=== PATIENT | female | born 1975 | race African-American/Black ===

== ENCOUNTER 2019-05-08 19:52 | Emergency (ER) | payer SELFPAY ==
[2019-05-08 21:04] LABS: Absolute Lymphocytes (CBC) 2.8 K/uL (0.7-4.9); Basophils % 0.1 % (0-1.3); Eosinophils % 1.4 % (0-4.4); Hematocrit 39.9 % (36.0-45.0); Lymphocytes % 39.8 % (15.3-44.8); MPV 8.7 fL (7.6-11.3); Monocytes % 6.2 % (3.3-12.3)
[2019-05-08 21:05] LABS: Protime INR 1.02
[2019-05-08] MEDS ORDERED: ONDANSETRON 4 MG (ODT) TAB ONE (21:12)
[2019-05-08] MEDS ORDERED: MECLIZINE HCL 12.5 MG TAB ONE (21:12)
--- NOTE | 2019-05-08 21:15 | RAD REPORT ---
EXAM DESCRIPTION: RAD - Chest Single View - 05/08/2019 9:08 pm CLINICAL HISTORY: CHEST PAIN Chest pain. COMPARISON: Chest Single View dated 09/23/2016; CHEST SINGLE VIEW dated 12/30/2013; CHEST SINGLE VIEW dated 12/08/2009; CHEST SINGLE VIEW dated 11/29/2008 FINDINGS: Portable technique limits examination quality. The lungs are grossly clear. The heart is mildly enlarged in size. No displaced fractures. IMPRESSION: Mild cardiomegaly.
[2019-05-08 21:17] LABS: ALT/SGPT 18 U/L (12-78); AST/SGOT 14 U/L (15-37); Albumin 3.3 g/dL (3.4-5.0); Alkaline Phosphatase 73 U/L (45-117); BUN Blood Urea Nitrogen 14 mg/dL (7-18); Bicarbonate 29 mmol/L (21-32); Bilirubin Direct 0.1 mg/dL (0-0.2); Bilirubin Total 0.4 mg/dL (0.2-1.0); Glucose Level 85 mg/dL (74-106); Magnesium 2.3 mg/dL (1.8-2.4); NT PRO-BNP 94 pg/mL (<125); Potassium 3.8 mmol/L (3.5-5.1); Protein, Total 6.9 g/dL (6.4-8.2); Sodium Level 140 mmol/L (136-145); Troponin (Emerg Dept Use Only) < 0.02 ng/mL (0.0-0.045)
--- NOTE | 2019-05-08 22:31 | ER ---
Nurse's Notes [facility] Name: Theresa Mcgill Age: 44 yrs Sex: Female : 1975 Arrival Date: 05/08/2019 Time: 19:53 Bed 26 Private MD: Diagnosis: Dizziness. Acute labyrinthitis Presentation: 05/08 19:57 Presenting complaint: Patient states: Dizziness with nausea that is worse with movement aj since yesterday. Transition of care: patient was not received from another setting of care. Onset of symptoms was May 07, 2019. Risk Assessment: Do you want to hurt yourself or someone else? Patient reports no desire to harm self or others. Initial Sepsis Screen: Does the patient meet any 2 criteria? No. Patient's initial sepsis screen is negative. Does the patient have a suspected source of infection? No. Patient's initial sepsis screen is negative. Care prior to arrival: None. 19:57 Method Of Arrival: Ambulatory 19:57 Acuity: PAULINE 3 aj Triage Assessment: 19:58 General: Appears in no apparent distress. comfortable, Behavior is calm, cooperative, aj appropriate for age. Pain: Denies pain. Neuro: Level of Consciousness is awake, alert, obeys commands, Oriented to person, place, time, situation, Appropriate for age. Neuro: Reports dizziness. Respiratory: Airway is patent Respiratory effort is even, unlabored, Respiratory pattern is regular, symmetrical. GI: Reports nausea, vomiting. Derm: Skin is intact, is healthy with good turgor, Skin is pink, warm \T\ dry. normal. 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 - Social history:: Smoking status: Patient/guardian denies using tobacco. - Ebola Screening: : Patient negative for fever greater than or equal to 101.5 degrees Fahrenheit, and additional compatible Ebola Virus Disease symptoms Patient denies exposure to infectious person Patient denies travel to an Ebola-affected area in the 21 days before illness onset No symptoms or risks identified at this time. Screenin:09 Abuse screen: Denies threats or abuse. Denies injuries from another. Nutritional ca1 screening: No deficits noted. Tuberculosis screening: No symptoms or risk factors identified. Fall Risk None identified. Assessment: 20:00 General: Appears in no apparent distress. comfortable, Behavior is calm, cooperative, ca1 appropriate for age. Pain: Denies pain. Neuro: Level of Consciousness is awake, alert, obeys commands, Oriented to person, place, time, situation, Reports dizziness, since yesterday. Cardiovascular: Reports lightheadedness, Heart tones S1 S2 present Capillary refill < 3 seconds Patient's skin is warm and dry. Pulses are all present. Rhythm is sinus bradycardia. Respiratory: Airway is patent Respiratory effort is even, unlabored, Respiratory pattern is regular, symmetrical, Breath sounds are clear bilaterally. GI: Abdomen is round non-distended, obese, Bowel sounds present X 4 quads. Abd is soft and non tender X 4 quads. GI: Reports nausea. : No deficits noted. No signs and/or symptoms were reported regarding the genitourinary system. EENT: No deficits noted. No signs and/or symptoms were reported regarding the EENT system. Derm: Skin is intact, is healthy with good turgor, Skin is pink, warm \T\ dry. Musculoskeletal: Circulation, motion, and sensation intact. Capillary refill < 3 seconds, Range of motion: intact in all extremities. 21:15 Reassessment: Patient appears in no apparent distress at this time. Patient and/or ca1 family updated on plan of care and expected duration. Pain level reassessed. Patient is alert, oriented x 3, equal unlabored respirations, skin warm/dry/pink. 22:20 Reassessment: Patient appears in no apparent distress at this time. Patient and/or ca1 family updated on plan of care and expected duration. Pain level reassessed. Patient is alert, oriented x 3, equal unlabored respirations, skin warm/dry/pink. 22:39 Reassessment: Patient appears in no apparent distress at this time. Patient is alert, ca1 oriented x 3, equal unlabored respirations, skin warm/dry/pink. Vital Signs: 19:58 BP 140 / 61; Pulse 61; Resp 16; Temp 97.9; Pulse Ox 97% on R/A; Weight 126.1 kg; Height aj 5 ft. 6 in. (167.64 cm); 21:15 BP 122 / 75; Pulse 62; Resp 17 S; Temp 98.1(TE); Pulse Ox 100% on R/A; ca1 22:22 BP 121 / 71; Pulse 54; Resp 19 S; Temp 98(TE); Pulse Ox 98% on R/A; ca1 19:58 Body Mass Index 44.87 (126.10 kg, 167.64 cm) ED Course: 19:53 Patient arrived in ED. ag3 19:58 Triage completed. aj 19:58 Arm band placed on right wrist. Patient placed in an exam room. aj 20:08 Deneen Gay, JOSE is Primary Nurse. ca1 20:09 Patient has correct armband on for positive identification. Placed in gown. Bed in low ca1 position. Call light in reach. Side rails up X 1. front desk monitor on. Pulse ox on. NIBP on. Warm blanket given. 20:38 Don Wallis PA is PHCP. [facility] 20:38 Bhavesh Castellano MD is Attending Physician. [facility] 20:48 No provider procedures requiring assistance completed. Inserted saline lock: 20 gauge ca1 in right antecubital area, using aseptic technique. Blood collected. 21:10 XRAY Chest (1 view) In Process Unspecified. EDMS 21:29 CT Head Brain wo Cont In Process Unspecified. EDMS 22:40 IV discontinued, intact, bleeding controlled, No redness/swelling at site. Pressure ca1 dressing applied. Administered Medications: 20:58 Drug: Meclizine 50 mg Route: PO; ca1 22:18 Follow up: Response: No adverse reaction; Nausea is decreased ca1 20:58 Drug: Zofran 4 mg Route: PO; ca1 22:20 Follow up: Response: No adverse reaction; Marked relief of symptoms ca1 Outcome: 22:29 Discharge ordered by . pkcody 22:40 Discharged to home ambulatory, with family. ca1 22:40 Condition: stable 22:40 Discharge instructions given to patient, Instructed on discharge instructions, follow up and referral plans. medication usage, Demonstrated understanding of instructions, follow-up care, medications, Prescriptions given X 2. 22:40 Patient left the ED. ca1 Signatures: Dispatcher [employer] EDMS Florecita Jones RN RN aj Lam, Pin, MD MD pkl Mickail, Joel, PA PA jmm Gomez, Gayle ag3 Acjazzmine, Deneen, RN RN ca1
--- NOTE | 2019-05-08 22:31 | EDPHYS ---
Physician Documentation [facility] Name: Theresa Mcgill Age: 44 yrs Sex: Female : 1975 Arrival Date: 05/08/2019 Time: 19:53 Bed 26 Private MD: ED Physician Bhavesh Castellano HPI: 05/08 20:49 This 44 yrs old Black Female presents to ER via Ambulatory with complaints of Nausea, jmm Dizziness. 20:49 The patient presents with dizziness. Onset: The symptoms/episode began/occurred jmm acutely, 1 day(s) ago. Modifying factors: The symptoms are alleviated by holding head still, the symptoms are aggravated by movement of head, standing up, changing position. Associated signs and symptoms: Pertinent positives: nausea. This is a 44 year old female with a history of asthma that presents to the ED with complaints of dizziness/pre syncope beginning yesterday while walking. Patient states symptoms have been ongoing with nausea. Symptoms are worsened with movement. Denies weakness. 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 - Social history:: Smoking status: Patient/guardian denies using tobacco. - Ebola Screening: : Patient negative for fever greater than or equal to 101.5 degrees Fahrenheit, and additional compatible Ebola Virus Disease symptoms Patient denies exposure to infectious person Patient denies travel to an Ebola-affected area in the 21 days before illness onset No symptoms or risks identified at this time. ROS: 20:49 Constitutional: Negative for fever, chills, and weight loss, Cardiovascular: Negative jmm for chest pain, palpitations, and edema, Respiratory: Negative for shortness of breath, cough, wheezing, and pleuritic chest pain. 20:49 Neuro: Positive for dizziness. 20:49 All other systems are negative. Exam: 20:49 Constitutional: This is a well developed, well nourished patient who is awake, alert, jmm and in no acute distress. Head/Face: atraumatic. Eyes: EOMI, no conjunctival erythema appreciated ENT: Moist Mucus Membranes Neck: Trachea midline, Supple Chest/axilla: Normal chest wall appearance and motion. Cardiovascular: Regular rate and rhythm. No edema appreciated 20:49 Abdomen/GI: Non distended, soft Back: Normal ROM Skin: General appearance color normal MS/ Extremity: Moves all extremities, no obvious deformities appreciated, no edema noted to the lower extremities 20:49 Eyes: Nystagmus: fatiguable . 20:49 Neuro: Orientation: is normal, Mentation: is normal, Memory: is normal, Cerebellar function: normal finger to nose testing. 20:49 Psych: Behavior/mood is pleasant, cooperative. 21:30 ECG was reviewed by the Attending Physician. [facility] Vital Signs: 19:58 BP 140 / 61; Pulse 61; Resp 16; Temp 97.9; Pulse Ox 97% on R/A; Weight 126.1 kg; Height aj 5 ft. 6 in. (167.64 cm); 21:15 BP 122 / 75; Pulse 62; Resp 17 S; Temp 98.1(TE); Pulse Ox 100% on R/A; ca1 22:22 BP 121 / 71; Pulse 54; Resp 19 S; Temp 98(TE); Pulse Ox 98% on R/A; ca1 19:58 Body Mass Index 44.87 (126.10 kg, 167.64 cm) aj MDM: 20:49 Patient medically screened. [facility] 21:30 Data reviewed: vital signs, nurses notes. [facility] 21:54 Transition of care: After a detail discussion of the patient's case, care is [facility] transferred to Bhavesh Castellano MD. 22:25 Data reviewed: vital signs, nurses notes, lab test result(s), EKG, radiologic studies, pkl CT scan, plain films. ED course: Discussed lab. and imaging's results with patient. Patient said she is better. Advised to follow with her PCP in 2 to 3 days. Patient understood instructions. 05/08 20:40 Order name: Basic Metabolic Panel ca1 05/08 20:40 Order name: CBC with Diff ca1 05/08 20:40 Order name: LFT's ca1 05/08 20:40 Order name: Magnesium; Complete Time: 22:23 ca1 05/08 20:40 Order name: NT PRO-BNP; Complete Time: 22:23 ca1 05/08 20:40 Order name: PT-INR; Complete Time: 22:23 ca1 05/08 20:40 Order name: Troponin (emerg Dept Use Only); Complete Time: 22:23 ca1 05/08 20:40 Order name: XRAY Chest (1 view); Complete Time: 22: ca1 05/08 20:41 Order name: Basic Metabolic Panel; Complete Time: 22:23 EDMS 05/08 20:41 Order name: CBC with Automated Diff; Complete Time: 22:23 EDMS 05/08 20:41 Order name: Liver (Hepatic) Function; Complete Time: 22: EDMS 05/08 20:52 Order name: CT Head Brain wo Cont jmm 05/08 20:40 Order name: EKG; Complete Time: 20:42 ca1 05/08 20:40 Order name: Cardiac monitoring; Complete Time: 20:48 ca1 05/08 20:40 Order name: EKG - Nurse/Tech; Complete Time: 20:48 ca1 05/08 20:40 Order name: IV Saline Lock; Complete Time: 20:48 ca1 05/08 20:40 Order name: Labs collected and sent; Complete Time: 20:48 ca1 05/08 20:40 Order name: O2 Per Protocol; Complete Time: 20:48 ca1 05/08 20:40 Order name: O2 Sat Monitoring; Complete Time: 20:48 ca1 EC:30 Rate is 57 beats/min. Rhythm is regular. QRS [place] is Normal. CA interval is normal. QRS jmm interval is normal. QT interval is normal. No Q waves. T waves are Normal. No ST changes noted. Administered Medications: 20:58 Drug: Meclizine 50 mg Route: PO; ca1 22:18 Follow up: Response: No adverse reaction; Nausea is decreased ca1 20:58 Drug: Zofran 4 mg Route: PO; ca1 22:20 Follow up: Response: No adverse reaction; Marked relief of symptoms ca1 Disposition: 22:25 Co-signature as Attending Physician, Bhavesh Castellano MD. pkl Disposition: 05/08/19 22:29 Discharged to Home. Impression: Dizziness. Acute labyrinthitis. - Condition is Stable. - Prescriptions for Zofran 4 mg Oral Tablet - take 1 tablet by ORAL route every 12 hours As needed; 6 tablet. Antivert 25 mg Oral Tablet - take 1 tablet by ORAL route every 8 hours As needed; 20 tablet. - Medication Reconciliation Form, Thank You Letter, Antibiotic Education, Prescription Opioid Use form. - Follow up: Private Physician; When: 2 - 3 days; Reason: Re-evaluation by your physician. - Problem is new. - Symptoms have improved. Signatures: Dispatcher [employer] Florecita Danielson, RN RN Bhavesh Purdy MD MD pkl Don Wallis PA PA jmm Acob, Cheryl, RN RN ca1 Corrections: (The following items were deleted from the chart) 22:40 22:29 05/08/2019 22:29 Discharged to Home. Impression: Dizziness. Acute labyrinthitis. ca1 Condition is Stable. Forms are Medication Reconciliation Form, Thank You Letter, Antibiotic Education, Prescription Opioid Use. Follow up: Private Physician; When: 2 - 3 days; Reason: Re-evaluation by your physician. Problem is new. Symptoms have improved. pkl
--- NOTE | 2019-05-09 07:21 | EKG ---
Test Date: 2019-05-08 Test Time: 20:19:22 Naval Engineer: DARÍO MEASUREMENT RESULTS: Intervals: Rate: 57 CT: 178 QRSD: 80 QT: 434 QTc: 422 [place]: P: 51 CT: 178 QRS: 38 T: 45 INTERPRETIVE STATEMENTS: Sinus bradycardia Otherwise normal ECG Compared to ECG 11/29/2008 20:02:38 Sinus tachycardia no longer present T-wave abnormality no longer present Electronically Signed On 05-09-19 07:20:35 CDT by Marlon Rosales
--- NOTE | 2019-05-09 12:51 | RAD REPORT ---
EXAM DESCRIPTION: CT HEAD WITHOUT IV CONTRAST CLINICAL HISTORY: DIZZINESS. COMPARISON: None. TECHNIQUE: CT scan of the brain without IV contrast. This exam was performed according to our depa rtmental dose-optimization program, which includes automated exposure control, adjustment of the mA a nd/or kV according to patient size and/or use of iterative reconstruction technique. FINDINGS: The ventricles, cisterns, and sulci are age-appropriate. No evidence of acute infarction, intracranial hemorrhage, extra-axial fluid collection, or midline shift. No air-fluid levels are seen in the paranasal sinuses to suggest acute sinusitis. No depressed skull fracture. IMPRESSION: No acute intracranial findings. Electronically signed by: Demetrio Avalos MD 05/08/2019 9:36 PM CDT Due to temporary technical issues with the PACS/Fluency reporting system, reports are being signed by the in house radiologist as a courtesy to ensure prompt reporting. The interpreting radiologist is f ully responsible for the content of the report.
== END 2019-05-08 22:40 | disposition home or self-care (01) ==
LOC: ER 19:52
DX: H83.09 Labyrinthitis, unspecified ear (principal); R42 Dizziness and giddiness; J45.909 Unspecified asthma, uncomplicated
CPT/HCPCS: 36415; 70450; 71045; 80048; 80076; 83735; 83880; 84484; 85025; 85610; 93005; 99284

== ENCOUNTER 2020-01-30 03:47 | Emergency (ER) | payer OTHER, SELFPAY ==
--- OUTSIDE RECORDS SUMMARY | 2020-01-30 03:50 | XMS REPORT ---
:1975 Author Organization [employer] Care Team Providers Name Role Phone Beth Starkey Provider Role Unavailable Allergies No Known Allergies Problems Problem Type Condition Code Onset Dates Condition Statu s Problem Hyperlipidemia, unspecified E78.5 Active hyperlipidemia type Problem Morbid (severe) obesity due to E66.01 Active excess calories Problem Body mass index (BMI) 40.0-44.9, Z68.41 Active adult Problem Asthma, unspecified asthma J45.909 A ctive severity, unspecified whether complicated, unspecified whether persistent Problem Prediabetes R73.03 Active Problem Enlarged heart I51.7 Active Problem Diabetes E11.9 Active Problem Palpitations R00.2 Active Problem Essential hypertension I10 Activ e Problem Seasonal allergies J30.2 Active Problem Peripheral edema R60.9 Active Problem Anxiety F41.9 Active Problem Morbid obesity E66.01 Active Medications No Known Medications Results No Known Results Summary Purpose [employer]Clinical[employer] Submission
--- OUTSIDE RECORDS SUMMARY | 2020-01-30 03:50 | XMS REPORT ---
[...] Active Problem Morbid obesity E66.01 Active Medications Medication Code Code Instructions Start End Status Dosage System Date Date Rosuvastatin [facility] [id number] 20 MG Orally January Active 1 tablet Calcium Once a day 2019 Results No Known Results Summary Purpose [employer] Submission
--- OUTSIDE RECORDS SUMMARY | 2020-01-30 03:50 | XMS REPORT ---
:1975 Author [facility] Care Team Providers Name Role Phone Beth Starkey Provider Role Unavailable Allergies, Adverse Reactions, Alerts Substance Reaction Event Type N.K.D.A. Info Not Available Non Drug Allergy Problems Problem Type Condition Code Onset Dates Condition Statu s Problem Hyperlipidemia, unspecified E78.5 Active hyperlipidemia type Problem Morbid (severe) obesity due to E66.01 Active excess calories Problem Body mass index (BMI) 40.0-44.9, Z68.41 Active adult Problem Diabetes E11.9 Active Assessment Asthma, unspecified asthma J45.909 A ctive severity, unspecified whether complicated, unspecified whether persistent Problem Palpitations R00.2 Active Assessment Morbid obesity E66.01 Active Assessment Body mass index (BMI) 40.0-44.9, Z68.41 Active adult Problem Essential hypertension I10 Activ e Problem Seasonal allergies J30.2 Active Problem Peripheral edema R60.9 Active Problem Anxiety F41.9 Active Problem Morbid obesity E66.01 Active Assessment Peripheral edema R60.9 Active Assessment Enlarged heart I51.7 Active Assessment Hyperlipidemia, unspecified E78.5 Active hyperlipidemia type Assessment Prediabetes R73.03 Active Problem Asthma, unspecified asthma J45.909 A ctive severity, unspecified whether complicated, unspecified whether persistent Assessment Palpitations R00.2 Active Problem Prediabetes R73.03 Active Assessment Anxiety F41.9 Active Assessment Essential hypertension I10 Activ e Problem Enlarged heart I51.7 Active Medications Medication Code Code Instructions Start End Status Dosage System Date Date Albuterol ND 02713075337 (2.5 MG/3ML) Active 3 ml as Sulfate 0.083% needed Inhalation every 4-6 hrs Ventolin HFA ND 63530669443 108 (90 Base) Active 2 puffs as MCG/ACT needed Inhalation every 4-6 hrs. Bystolic NDC 89654064778 5 MG Orally Once Active 1 tablet a day Albuterol NDC 0 Active not defined Symbicort ND 57949427689 80-4.5 MCG/ACT Oct 11, Active 2 p uffs Inhalation Twice 2020 a day Results No Known Results Summary Purpose eClinicalWorks Submission
--- OUTSIDE RECORDS SUMMARY | 2020-01-30 03:50 | XMS REPORT ---
:1975 Author Organization [facility] t Address [facility] [place] [address] Care Team Providers Name Role Phone Unavailable Unavailable Unavailable Problems This patient has no known problems. Allergies, Adverse Reactions, Alerts This patient has no known allergies or adverse reactions. Medications This patient has no known medications.
--- NOTE | 2020-01-30 04:14 | ER ---
Nurse's Notes [facility] Name: Theresa Mcgill Age: 44 yrs Sex: Female : 1975 Arrival Date: 01/30/2020 Time: 03:52 Bed 5 Private MD: Beth Starkey Diagnosis: Dental caries Presentation: 01/29 04:00 Chief complaint: Patient states: I am having toothache started yesterday now it gets rr5 worst. 04:00 Coronavirus screen: Proceed with normal triage. Ebola Screen: No symptoms or risks rr5 identified at this time. Initial Sepsis Screen: Does the patient meet any 2 criteria? No. Patient's initial sepsis screen is negative. Does the patient have a suspected source of infection? No. Patient's initial sepsis screen is negative. Risk Assessment: Do you want to hurt yourself or someone else? Patient reports no desire to harm self or others. Onset of symptoms was January 29, 2020. 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 - Social history:: Smoking status: unknown Patient/guardian denies using alcohol, street drugs, tobacco products. - Family history:: not pertinent. - Hospitalizations: : No recent hospitalization is reported. Screenin:06 Abuse screen: Denies threats or abuse. Denies injuries from another. Nutritional rr5 screening: No deficits noted. Tuberculosis screening: No symptoms or risk factors identified. Fall Risk None identified. Total Li Fall Scale indicates No Risk (0-24 pts). Assessment: 04:00 General: Appears in no apparent distress. uncomfortable, Behavior is calm, cooperative, rr5 appropriate for age. Pain: Complains of pain in upper left third molar Pain radiates to face Pain currently is 10 out of 10 on a pain scale. Quality of pain is described as aching, Pain began 1 day ago. Is intermittent. Neuro: Level of Consciousness is awake, alert, obeys commands, Oriented to person, place, time, situation, Appropriate for age. Cardiovascular: Capillary refill < 3 seconds Patient's skin is warm and dry. Respiratory: Airway is patent Respiratory effort is even, unlabored, Respiratory pattern is regular, symmetrical. GI: No signs and/or symptoms were reported involving the gastrointestinal system. : No signs and/or symptoms were reported regarding the genitourinary system. EENT: Dental caries noted in upper left third molar (#16) Reports pain in upper left third molar. Derm: Skin is intact, is healthy with good turgor, Skin temperature is warm. Musculoskeletal: Circulation, motion, and sensation intact. Capillary refill < 3 seconds. 04:43 Reassessment: Patient appears in no apparent distress at this time. Patient is alert, rr5 oriented x 3, equal unlabored respirations, skin warm/dry/pink. discharge instruction given and explained without complaints made. family member arrived for her transportation going home. Patient states symptoms have improved. Vital Signs: 04:00 BP 175 / 107; Pulse 66; Resp 20; Temp 98.4; Pulse Ox 99% ; Weight 119.29 kg; Height 5 rr5 ft. 6 in. (167.64 cm); Pain 10/10; 04:44 BP 168 / 110; Pulse 62; Resp 19; Temp 98; Pulse Ox 98% ; rr5 04:00 Body Mass Index 42.45 (119.29 kg, 167.64 cm) rr5 ED Course: 03:52 Patient arrived in ED. es 03:52 Beth Starkey MD is Private Physician. es 04:00 Arm band placed on right wrist. rr5 04:01 Miky Solorzano RN is Primary Nurse. rr5 04:03 Triage completed. rr5 04:04 Adi Scott MD is Attending Physician. rn 04:08 Patient has correct armband on for positive identification. Bed in low position. Call rr5 light in reach. 04:45 No provider procedures requiring assistance completed. Patient did not have IV access rr5 during this emergency room visit. Administered Medications: 04:20 Drug: Clindamycin 300 mg Route: PO; rr5 04:46 Follow up: Response: No adverse reaction rr5 04:20 Drug: [place] 5 mg-325 mg 1 tabs {Note: rass 0.} Route: PO; rr5 04:45 Follow up: Response: No adverse reaction; Pain is decreased; RASS: Alert and Calm (0) rr5 04:23 Drug: TORadol - Ketorolac 15 mg Route: IM; Site: right deltoid; rr5 04:45 Follow up: Response: No adverse reaction; Pain is decreased rr5 Outcome: 04:13 Discharge ordered by . rn 04:45 Discharged to home ambulatory, with family. rr5 04:45 Condition: stable 04:45 Discharge instructions given to patient, Instructed on discharge instructions, follow up and referral plans. medication usage, Demonstrated understanding of instructions, follow-up care, medications, Prescriptions given X 1. 04:46 Patient left the ED. rr5 Signatures: Julieta Guzmán Roman, MD MD rn Roque, Raymond, RN RN rr5
--- NOTE | 2020-01-30 04:14 | EDPHYS ---
Physician Documentation [facility] Name: Theresa Mcgill Age: 44 yrs Sex: Female : 1975 Arrival Date: 01/30/2020 Time: 03:52 Bed 5 Private MD: Beth Starkey ED Physician Adi Scott HPI: 01/29 04:09 This 44 yrs old Black Female presents to ER via Ambulatory with complaints of Toothache.rn 04:09 The patient presents with pain. The problem is located in the left upper last molar. rn Onset: The symptoms/episode began/occurred yesterday. Duration: The symptoms are intermittent. Modifying factors: The symptoms are alleviated by nothing, the symptoms are aggravated by chewing, talking. Severity of symptoms: At their worst the symptoms were moderate, in the emergency department the symptoms are unchanged. The patient has experienced similar episodes in the past. Reports toothache since yesterday, no trauma, no swelling, reports pain shooting to head. No fever. Has had dental pain before but feels worse this time.. 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 - Social history:: Smoking status: unknown Patient/guardian denies using alcohol, street drugs, tobacco products. - Family history:: not pertinent. - Hospitalizations: : No recent hospitalization is reported. ROS: 04:10 Constitutional: Negative for fever, chills, and weight loss, ENT: + dental pain Neck: rn Negative for injury, pain, and swelling, Neuro: Negative for weakness, numbness, tingling, and seizure. Exam: 04:10 Constitutional: This is a well developed, well nourished patient who is awake, alert, rn and in no acute distress. Head/Face: Normocephalic, atraumatic. ENT: Poor dentition, most notably left upper last molar, with deep cavitation, no abscess noted, no fluctuance in buccal space. Neck: Trachea midline, no thyromegaly or masses palpated, and no cervical lymphadenopathy. Supple, full range of motion without nuchal rigidity, or vertebral point tenderness. No Meningismus. Vital Signs: 04:00 BP 175 / 107; Pulse 66; Resp 20; Temp 98.4; Pulse Ox 99% ; Weight 119.29 kg; Height 5 rr5 ft. 6 in. (167.64 cm); Pain 10/10; 04:44 BP 168 / 110; Pulse 62; Resp 19; Temp 98; Pulse Ox 98% ; rr5 04:00 Body Mass Index 42.45 (119.29 kg, 167.64 cm) rr5 MDM: 04:04 Patient medically screened. rn 04:10 Differential diagnosis: dental caries. Differential diagnosis: dental abscess. Data rn reviewed: vital signs, nurses notes, and as a result, I will discharge patient. Counseling: I had a detailed discussion with the patient and/or guardian regarding: the historical points, exam findings, and any diagnostic results supporting the discharge/admit diagnosis, the need for outpatient follow up, to return to the emergency department if symptoms worsen or persist or if there are any questions or concerns that arise at home. Response to treatment: the patient's symptoms have mildly improved after treatment. Special discussion: I discussed with the patient/guardian in detail that at this point there is no indication for admission to the hospital. It is understood, however, that if the symptoms persist or worsen the patient needs to return immediately for re-evaluation. Administered Medications: 04:20 Drug: Clindamycin 300 mg Route: PO; rr5 04:46 Follow up: Response: No adverse reaction rr5 04:20 Drug: Terrell 5 mg-325 mg 1 tabs {Note: rass 0.} Route: PO; rr5 04:45 Follow up: Response: No adverse reaction; Pain is decreased; RASS: Alert and Calm (0) rr5 04:23 Drug: TORadol - Ketorolac 15 mg Route: IM; Site: right deltoid; rr5 04:45 Follow up: Response: No adverse reaction; Pain is decreased rr5 Disposition: 01/30/20 04:13 Discharged to Home. Impression: Dental caries. - Condition is Stable. - Discharge Instructions: Dental Pain. - Prescriptions for Clindamycin HCl 300 mg Oral Capsule - take 1 capsule by ORAL route every 6 hours for 10 days; 40 capsule. - Medication Reconciliation Form, Thank You Letter, Antibiotic Education, Prescription Opioid Use form. - Follow up: Private Physician; When: As needed; Reason: Recheck today's complaints, Re-evaluation by your physician. - Problem is chronic. - Symptoms have improved. Signatures: Adi Scott MD MD rn Roque, Raymond, RN RN rr5 Corrections: (The following items were deleted from the chart) 04:11 04:10 Constitutional: This is a well developed, well nourished patient who is awake, rn alert, and in no acute distress. Head/Face: Normocephalic, atraumatic. ENT: Poor dentition, most notably left upper last molar, with deep cavitation, no abscess noted, no fluctuance in buccal space. rn 04:46 04:13 01/30/2020 04:13 Discharged to Home. Impression: Dental caries. Condition is rr5 Stable. Forms are Medication Reconciliation Form, Thank You Letter, Antibiotic Education, Prescription Opioid Use. Follow up: Private Physician; When: As needed; Reason: Recheck today's complaints, Re-evaluation by your physician. Problem is chronic. Symptoms have improved. rn
[2020-01-30] MEDS ORDERED: HYDROCODONE/APAP 5/325 MG TAB ONE (04:22)
[2020-01-30] MEDS ORDERED: KETOROLAC 30 MG/ML INJ ONE (04:23)
[2020-01-30 05:00] VITALS: BP 168/110; TEMP 98; O2SAT 98
== END 2020-01-30 04:46 | disposition home or self-care (01) ==
LOC: ER 03:47
DX: K02.9 Dental caries, unspecified (principal); I10 Essential (primary) hypertension; E78.5 Hyperlipidemia, unspecified
CPT/HCPCS: 96372; 99283

== ENCOUNTER 2020-07-06 14:15 | Emergency (ER) | payer OTHER ==
--- OUTSIDE RECORDS SUMMARY | 2020-07-06 14:17 | XMS REPORT | Clinical Summary ---
:1975 Author Organization [facility] Address [address] [place] [address] Care Team Providers Name Role Phone Godwin Primary Care Provider Allergies No Known Allergies Medications Medication Sig Dispensed Refills Start Date End Date Status albuterol (PROVENTIL) Take 2.5 mg by 0 Active 2.5 mg/0.5 mL Nebu nebulization. nebulizer solution budesonide-formoterol Inhale 2 puffs by 0 Active (SYMBICORT) 80-4.5 mouth via inhaler mcg/actuation inhaler 2 (two) times daily. difluprednate 0.05 % Apply to eye(s) 4 0 Active Drop (four) times daily. prednisoLONE acetate 1 drop 4 (four) 0 Active (PRED FORTE) 1 % times daily. ophthalmic suspension polymyxin B Place 1 drop into 0 Active sulf-trimethoprim the left eye 10,000 unit- 1 mg/mL every 4 (four) Drop hours. fluticasone-salmeterol Inhale 1 puff by 0 Active (ADVAIR) 250-50 mouth via inhaler mcg/dose diskus inhaler every 12 (twelve) hours. Active Problems No known active problems Social History Tobacco Use Types Packs/Day Years Used Date Never Smoker Alcohol Use Drinks/Week oz/Week Comments No Sex Assigned at Date Recorded Not on file Job Start Date Occupation Industry Not on file Not on file Not on file Travel History Travel Start Travel End No recent travel history available. 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
--- OUTSIDE RECORDS SUMMARY | 2020-07-06 14:18 | XMS REPORT ---
:1975 [facility] Care Team Providers Name Role Phone Beth Starkey Provider Role Unavailable Allergies, Adverse Reactions, Alerts Substance Reaction Event Type N.K.D.A. Info Not Available Non Drug Allergy Problems Problem Type Condition Code Onset Dates Condition Statu s Assessment Anxiety F41.9 Active Assessment Morbid obesity E66.01 Active Assessment Body mass index (BMI) 40.0-44.9, Z68.41 Active adult Assessment Asthma, unspecified asthma J45.909 A ctive severity, unspecified whether complicated, unspecified whether persistent Assessment Hyperlipidemia, unspecified E78.5 Active hyperlipidemia type Assessment Prediabetes R73.03 Active Assessment Peripheral edema R60.9 Active Assessment Enlarged heart I51.7 Active Problem Seasonal allergies J30.2 Active Assessment Palpitations R00.2 Active Problem Morbid obesity E66.01 Active Assessment Screening mammogram, encounter for Z12.31 Active Problem Anxiety F41.9 Active Problem Diabetes E11.9 Active Problem Palpitations R00.2 Active Problem Hyperlipidemia E78.5 Active Problem Hypertension I10 Active Assessment Acute left-sided thoracic back pain M54.6 Active Assessment Urinary frequency R35.0 Active Problem Asthma J45.909 Active Assessment Urinary incontinence, unspecified R32 Active type Problem Asthma, unspecified asthma J45.909 A ctive severity, unspecified whether complicated, unspecified whether persistent Problem Prediabetes R73.03 Active Problem Acute left-sided thoracic back pain M54.6 Active Problem Urinary incontinence, unspecified R32 Active type Problem Essential hypertension I10 Activ e Problem Enlarged heart I51.7 Active Assessment Essential hypertension I10 Activ e Problem Morbid (severe) obesity due to E66.01 Active excess calories Problem Peripheral edema R60.9 Active Problem Hyperlipidemia, unspecified E78.5 Active hyperlipidemia type Problem Body mass index (BMI) 40.0-44.9, Z68.41 Active adult Medications Medication Code Code Instructions Start End Status Dosage System Date Date [facility] 40425870363 5 MG Orally Active 1 table t Once a day Meloxicam NDC 10096676131 15 MG Orally April 16April Active 1/2 to 1 Once daily 2019, tablet 2019 tablet as needed for pain; take with food or milk Rosuvastatin ND 93076690521 20 MG Orally January Active 1 tablet Calcium Once a day 2019 Albuterol [facility] 40152152918 (2.5 MG/3ML) Active 3 ml as Sulfate 0.083% needed Inhalation every 4-6 hrs Albuterol [facility] 04677052363 108 (90 Base) April 16, Active 2 p uffs as Sulfate HFA MCG/ACT 2019 needed Inhalation every 4-6 hrs Symbicort [facility] 05351295432 80-4.5 MCG/ACT Sept Active 2 p uffs Inhalation , Twice a day 2019 Ventolin HFA [facility] 23890053271 108 (90 Base) Inactive 2 puffs as MCG/ACT needed Inhalation every 4-6 hrs. ProAir HFA [facility] 31277404151 108 (90 Base) Active 1 p uff as MCG/ACT needed Inhalation every 4 hrs Albuterol [facility] 26493185225 Active not defined Results Name Result Date Reference Range Unit Abnormali ty Flag HEMOGLOBIN A1C ----A1C 5.4% 20200416 Urine Dip Stick ----pH 6.0 20200416 ----Ketone negative 20200416 ----SP. Gr 1.020 20200416 ----Leukocytes negative 20200416 ----Glucose negative 20200416 ----Protein negative 20200416 ----Nitrite negative 20200416 ----Blood negative 20200416 Summary Purpose eClinicalWorks Submission
--- OUTSIDE RECORDS SUMMARY | 2020-07-06 14:18 | XMS REPORT ---
:1975 Author Organization [employer] Care Team Providers Name Role Phone Beth Starkey Provider Role Unavailable Allergies No Known Allergies Problems Problem Type Condition Code Onset Dates Condition Statu s Problem Anxiety F41.9 Active Problem Diabetes E11.9 Active Problem Palpitations R00.2 Active Problem Hyperlipidemia E78.5 Active Problem Hypertension I10 Active Problem Asthma J45.909 Active Problem Asthma, unspecified asthma J45.909 A ctive severity, unspecified whether complicated, unspecified whether persistent Problem Prediabetes R73.03 Active Problem Acute left-sided thoracic back pain M54.6 Active Problem Urinary incontinence, unspecified R32 Active type Problem Essential hypertension I10 Activ e Problem Enlarged heart I51.7 Active Problem Morbid (severe) obesity due to E66.01 Active excess calories Problem Peripheral edema R60.9 Active Problem Hyperlipidemia, unspecified E78.5 Active hyperlipidemia type Problem Seasonal allergies J30.2 Active Problem Body mass index (BMI) 40.0-44.9, Z68.41 Active adult Problem Morbid obesity E66.01 Active Medications Medication Code Code Instructions Start End Date Status Dosage System Date Indomethacin NDC 96968548558 50 MG Orally May 15, Jun 14, Active 1 capsule Twice a day prn 2019 2019 with iris d or milk Results No Known Results Summary Purpose eClinicalWorks Submission
--- OUTSIDE RECORDS SUMMARY | 2020-07-06 14:18 | XMS REPORT | Summary of Care ---
:1975 Author Organization [facility] Address [address] [place] [address] Care Team Providers Name Role Phone KAIN Oliva Primary Care Provider Reason for Visit Reason Comments Exposure Encounter Details Date Type Department Care Team Description 06/04/2020 Laboratory Only [facility] Family Anita Reed PA [address] [place] [address] [place] [address] Suspected 2019 [facility] - [facility], [facility] Fam Pob I Coronavirus [address] [place] [address] Infection ([address] Dx) [place] [address] Allergies No Known Allergiesdocumented as of this encounter (statuses as of 06/04/2020) Medications Medication Sig Dispensed Refills Start Date End Date Status ibuprofen 600 mg Take 1 tablet by 30 tablet 0 10/22/2019 Active tabletIndications: mouth every 6 Viral URI with cough (six) hours as needed for Pain (scale 4-6). ondansetron (ZOFRAN Take 1 tablet by 10 tablet 0 10/22/2019 Active ODT) 4 mg mouth every 8 disintegrating (eight) hours as tabletIndications: needed for Viral URI with cough Nausea and Vomiting (N/V). benzonatate 200 mg Take 1 capsule 20 capsule 0 10/22/2019 Active capsuleIndications: by mouth 3 Viral URI with cough (three) times daily as needed for Cough for up to 20 doses. documented as of this encounter (statuses as of 06/04/2020) Active Problems Not on filedocumented as of this encounter (statuses as of 06/04/2020) Social History Tobacco Use Types Packs/Day Years Used Date Never Assessed Sex Assigned at Date Recorded Not on file documented as of this encounter Last Filed Vital Signs Not on filedocumented in this encounter Nursing Notes Amrita Cruz MA - 06/04/2020 4:40 PM CDMathew Mcgill is a 45 year old female here for COVID Screening with a Nasopharyngeal Swab All droplet and contact precautions taken with appropriate PPE worn while interacting with patient. ? Goggles ? N95 Mask ? Gloves ? Gown RR 18 Pulse Ox 98% Patient swabbed , both Nostrils. Patient educated on plan of care for visit, swabbing technique, risks and benefits of test and length of time to receive results. Verbal consent obtained to perform test. CDC Fact Sheet for Patients nCoV Diagnostic Panel dated 01/05/2020 and Factsheet What to Do if Sick with COVID 19 12/16/19 provided. Patient swabbed per appropriate nasopharyngeal technique, and patient tolerated well. Patient was discharged from the testing clinic in stable condition. Amrita Cruz MA 06/04/2020 4:46 PM documented in this encounter Plan of Treatment Name Type Priority Associated Diagnoses Order S anna COVID-19 (PCR MOLECULAR LAB Routine Suspected 2018 No jonas Ordered: 06/04/2020 TESTING) Coronavirus Infection Health Maintenance Due Date Last Done Comments Depression Screening 1988 DTaP,Tdap,and Td Vaccines (1 - 1995 Tdap) PAP SMEAR 1997 Breast Cancer Screening 2016 (MAMMOGRAM) INFLUENZA VACCINE (#1) 2020 PNEUMOCOCCAL 0-64 YEARS COMBINED Aged Out No longer eligible based on SERIES patient's age to complete this topic documented as of this encounter Results Not on filedocumented in this encounter Visit Diagnoses Diagnosis Suspected 2018 Novel Coronavirus Infecti on - Primary documented in this encounter Additional Health Concerns Infection Onset Date Last Indicated Resolved Time COVID-19 Rule Out 06/04/2020 06/04/2020 documented as of this encounter Insurance Payer Benefit Plan / Subscriber ID Effective Phone Address T e Group Dates [facility] [id number] 2020-Prese Me dicare Adv HEALTHCARE - [facility] documented as of this encounter
--- OUTSIDE RECORDS SUMMARY | 2020-07-06 14:18 | XMS REPORT | Continuity of Care Document ---
:1975 Author Organization [facility] t Address [address] [place] [address] Care Team Providers Name Role Phone Sharpless Primary Care Physician Doctor Unassigned, Name Attending Clinician Unavailable Lab, Fam Pob I Attending Clinician Unavailable Problems Condition Condition Condition Status Onset Resolution Last Treating Co mments Source Name Details Category Date Date Treatment Clinician Date Hyperlipid Hyperlipid Problem Active [facility], [facility], [facility] - unspecifie unspecifie Me moria d d l hyperlipid hyperlipid Ou tpati emia type emia type ent Clinics Morbid Morbid Problem Active [facility] (severe) (severe) [facility] - obesity obesity Memoria due to due to l excess excess Outpati calories calories ent Clinics Body mass Body mass Problem Active [facility] index index [facility] - (BMI) (BMI) Memoria 40.0-44.9, 40.0-44.9, l adult adult Outpati ent Clinics Diabetes Diabetes Problem [facility] Asthma, Asthma, Problem Active [facility] unspecifie unspecifie Cookie kes - d asthma d asthma Memori a severity, severity, l unspecifie unspecifie Ou tpati d whether d whether ent complicate complicate Cl inics d, d, unspecifie unspecifie d whether d whether persistent persistent Palpitatio Palpitatio Problem Active [facility] Essential Essential Diagnosis Active [facility] hypertensi hypertensi Cookie kes - on on Memoria l [facility] Seasonal Seasonal Problem Active [facility] allergies allergies [facility] - Memoria l [facility] Peripheral Peripheral Diagnosis Active [facility] edema edema [facility] - Memoria l [facility] Anxiety Anxiety Problem Active [facility] Enlarged Enlarged Problem Active [facility] heart heart [facility] - [facility] Prediabete Prediabete Problem Active [facility] l [facility] Acute Acute Problem Active [facility] left-sided left-sided Cookie kes - thoracic thoracic Memori a back pain back pain l [facility] Urinary Urinary Problem Active [facility] incontinen incontinen Cookie kes - ce, ce, Memoria unspecifie unspecifie l d type d type [facility] Acute pain Acute pain Diagnosis Active [facility] of left of left [facility] - knee knee Memoria l [facility] Left leg Left leg Problem Active [facility] pain pain [facility] - Memoria [facility] Allergies, Adverse Reactions, Alerts This patient has no known allergies or adverse reactions. Social History Social Habit Start Date Stop Date Quantity Comments Source Sex Assigned At [facility] Smoking Status Start Date Stop Date Source Never smoker [facility] Medications Ordered Filled Start Stop Current Ordering Indication Dosage Frequency Signature Comments Components Source Medication Medication Date Date Medication? Clinician (SIG) Name Name Tramadol Tramadol 2020- Yes Beth [address] [facility] HCl HCl 05-19 08-07 [place] as needed Luke s - 00:00: 00:00 for severe Memori a 00 :00 pain l [facility] Indomethaci Indomethaci 2020- Yes Beth [address] [facility] n n 7 08-23 [place] with food Luke s - 00:00: 00:00 or milk Memoria 00 :00 [facility] Albuterol Albuterol Yes Beth [address] [facility] Sulfate HFA Sulfate HFA 6-25 [place] needed [facility] - 00:00: Memoria 00 l [facility] Rosuvastati Rosuvastati Yes Beth [address] [facility] n Calcium n Calcium 4-03 [place] [facility] - 00:00: Memoria 00 l Outpati ent Clinics fluticasone Yes 1{puff} Inhale [address] -salmeterol 5-16 puff by [facility] - (ADVAIR) 14:27: mouth via Medi katie 250-50 08 inhaler Center mcg/dose every 12 diskus (twelve) inhaler hours. albuterol Yes 2.5mg Take 2.[address] (PROVENTIL) 5-16 mg by [facility] - 2.5 mg/0.5 12:47: nebulizati M edical mL Nebu 00 on. [place] nebulizer solution budesonide- Yes 2{puff} Q.5D Inhale [address] formoterol 5-16 puffs by [facility] - (SYMBICORT) 12:47: mouth via M edical 80-4.5 00 inhaler 2 [place] mcg/actuati (two) on inhaler times daily. diflupredna Yes Q.25D Apply to [facility] te 0.05 % 5-16 eye(s) 4 [facility] - Drop 12:47: (four) Medical 00 times Center daily. prednisoLON Yes 1[drp] Q.25D [address] [facility] E acetate 5-16 (four) [facility] - (PRED 12:47: times Medical FORTE) 1 % 00 daily. [place] ophthalmic suspension polymyxin B Yes 1[drp] Place [address] sulf-trimet 5-16 [facility] 12:47: the left Medical 10,000 00 eye every Center unit- 1 4 (four) mg/mL Drop hours. Albuterol Albuterol Yes Beth [address] [facility] Sulfate Sulfate Mill[place] needed Cookie kes - [facility] Albuterol Albuterol Yes Beth not [facility] Millender defined [facility] ProAir HFA ProAir HFA Yes Beth [address] [facility] Millender needed [facility] - Memoria l Outpati ent Clinics Bystolic Bystolic Yes Beth [address] Millender [facility] Symbicort Symbicort 2019- No Beth [address] 09-23 [place] [facility] - 00:00 [facility] :00 [facility] Procedures This patient has no known procedures. Encounters Start End Encounter Admission Attending Care Care Encounter Source Date/Time Date/Time Type Type Clinicians Facility Department ID 2020-06-05 2020-06-05 Patient Doctor COLEMAN [id number] 00:00:00 00:00:00 Secure Msg Unassigned, REGINA [id number] [place] [facility] [id number] 2020-06-04 2020-06-04 Laboratory Lab, [place] [id number] 16:45:31 17:05:31 Only Fam Pob I Health [id number] [place] [id number] Professio [id number] nal 0[address] 2020-06-04 2020-06-04 Letter Doctor COLEMAN [id number] 00:00:00 00:00:00 (Out) Unassigned, REGINA [id number] [place] [facility] [id number] 2020-05-19 2020-05-19 [facility] [id number] 16:20:00 16:20:00 [facility] Medicine Outpati ent Clinics 2020-05-15 2020-05-15 [facility] [id number] 14:40:00 14:40:00 [facility] Medicine Medicine Outpati ent Clinics 2020-04-16 2020-04-16 [facility] [id number] 10:00:00 10:00:00 [facility] Medicine Medicine Outpati ent Clinics 2020-01-23 2020-01-23 [facility] [id number] 10:28:00 10:28:00 [facility] Medicine Outpati ent Clinics 2020-01-15 2020-01-15 [facility] [id number] 15:14:00 15:14:00 [facility] Medicine Medicine Outpati ent Clinics 2020-01-15 2020-01-15 Out[place] [place] [id number] [facility] 14:00:00 14:00:00 [facility] Results This patient has no known results.
--- OUTSIDE RECORDS SUMMARY | 2020-07-06 14:18 | XMS REPORT ---
:1975 [facility] Team Providers Name Role Phone Beth Starkey Provider Role Unavailable Allergies, Adverse Reactions, Alerts Substance Reaction Event Type N.K.D.A. Info Not Available Non Drug Allergy Problems Problem Type Condition Code Onset Dates Condition Statu s Problem Peripheral edema R60.9 Active Problem Palpitations R00.2 Active Problem Anxiety F41.9 Active Problem Acute pain of left knee M25.562 Acti ve Assessment Acute pain of left knee M25.562 Acti ve Problem Asthma J45.909 Active Assessment Left leg pain M79.605 Active Assessment Peripheral edema R60.9 Active Problem Left leg pain M79.605 Active Problem Hyperlipidemia E78.5 Active Problem Diabetes E11.9 Active Problem Acute left-sided thoracic back pain M54.6 Active Problem Urinary incontinence, unspecified R32 Active type Problem Enlarged heart I51.7 Active Problem Seasonal allergies J30.2 Active Problem Essential hypertension I10 Activ e Problem Asthma, unspecified asthma J45.909 A ctive severity, unspecified whether complicated, unspecified whether persistent Problem Hyperlipidemia, unspecified E78.5 Active hyperlipidemia type Problem Morbid obesity E66.01 Active Problem Body mass index (BMI) 40.0-44.9, Z68.41 Active adult Assessment Essential hypertension I10 Activ e Problem Prediabetes R73.03 Active Problem Morbid (severe) obesity due to E66.01 Active excess calories Medications Medication Code Code Instructions Start End Status Dosage System Date Date Albuterol [facility] 37018643236 (2.5 MG/3ML) Active 3 ml as Sulfate 0.083% needed Inhalation every 4-6 hrs Tramadol HCl ND 73910265597 50 MG Orally May 19, May 29, Active 1 tablet Twice a day 2019 2019 as needed for severe pain Albuterol ND 60513992811 Active not defined Symbicort ND 32373606318 80-4.5 MCG/ACT Sept Active 2 p uffs Inhalation , Twice a day 2019 Albuterol ND 55066316050 108 (90 Base) April 16, Active 2 p uffs as Sulfate HFA MCG/ACT 2019 needed Inhalation every 4-6 hrs Indomethacin ND 06272594623 50 MG Orally May 15Jun 14, Active 1 capsule Twice a day prn 2019 2019 with iris d or milk ProAir HFA [facility] 58501825335 108 (90 Base) Active 1 p uff as MCG/ACT needed Inhalation every 4 hrs Bystolic ND 89853003322 5 MG Orally Active 1 table t Once a day Rosuvastatin [facility] 92051896134 20 MG Orally January Active 1 tablet Calcium Once a day 2019 Results No Known Results Summary Purpose eClinicalWorks Submission
--- OUTSIDE RECORDS SUMMARY | 2020-07-06 14:18 | XMS REPORT | Summary of Care ---
:1975 Author Organization [facility] Address [address] [place] [address] Care Team Providers Name Role Phone Pj KAIN Primary Care Provider Encounter Details Date Type Department Care Team Description 06/05/2020 Patient Secure Msg [facility] Doctor Unassigned, [address] [place] [address] [place] [phone] [phone] [place] [address] [place] [address] Allergies No Known Allergiesdocumented as of this encounter (statuses as of 06/05/2020) Medications Medication Sig Dispensed Refills Start Date [...] as of this encounter (statuses as of 06/05/2020) Active Problems Not on filedocumented as of this encounter (statuses as of 06/05/2020) Social History Tobacco Use Types Packs/Day Years Used Date Never Assessed Sex Assigned at Date Recorded Not on file documented as of this encounter Last Filed Vital Signs Not on filedocumented in this encounter Plan of Treatment Health Maintenance Due Date Last Done Comments Depression Screening 1988 DTaP,Tdap,and Td Vaccines (1 - 1995 Tdap) PAP SMEAR 1997 Breast Cancer Screening 2016 (MAMMOGRAM) INFLUENZA VACCINE (#1) 2020 PNEUMOCOCCAL 0-64 YEARS COMBINED Aged Out No longer eligible based on SERIES patient's age to complete this topic documented as of this encounter Results Not on filedocumented in this encounter Additional Health Concerns Infection Onset Date Last Indicated Resolved Time COVID-19 Rule Out 06/04/2020 06/04/2020 06/05/2020 2: 02 PM CDT documented as of this encounter Insurance Payer Benefit Plan / Subscriber ID Effective Phone Address T ype Group Dates LOCUST DALE DAPHNEY/DARIUS [id number] 2020-Criselda Jacques [facility] documented as of this encounter
--- OUTSIDE RECORDS SUMMARY | 2020-07-06 14:18 | XMS REPORT | Summary of Care ---
:1975 Author Organization [facility] Address [address] [place] [address] Care Team Providers Name Role Phone Pj KAIN Primary Care Provider Encounter Details Date Type Department Care Team Description 06/04/2020 Letter (Out) [facility] My[employer] Message s Doctor Unassigned, [address] [facility] [place] [address] [address] [facility] [phone] [place] [address] Allergies No Known Allergiesdocumented as of this [...] Results Not on filedocumented in this encounter Insurance Payer Benefit Plan / Subscriber ID Effective Phone Address T ype Group Dates [facility] [id number] 2020-Criselda cat [facility] - MEDICARE nt O MANAGED MEDICARE ADVANTAGE documented as of this encounter
[2020-07-06] MEDS ORDERED: ONDANSETRON 4 MG (ODT) TAB ONE (15:48)
--- NOTE | 2020-07-06 16:00 | RAD REPORT ---
EXAM DESCRIPTION: RAD - Chest Single View - 07/06/2020 3:36 pm CLINICAL HISTORY: COVID +;Cough;Dyspnea Chest pain. COMPARISON: Chest Single View dated 05/08/2019; Chest Single View dated 09/23/2016; CHEST SINGLE VIEW dated 12/30/2013; CHEST SINGLE VIEW dated 12/08/2009 FINDINGS: Portable technique limits examination quality. The lungs are grossly clear. The heart is mildly enlarged in size. No displaced fractures. IMPRESSION: No acute intrathoracic process suspected.
[2020-07-06] MEDS ORDERED: PROMETHAZINE 25 MG TABLET ONE (16:20)
--- NOTE | 2020-07-06 16:36 | EDPHYS ---
Physician Documentation [facility] Name: Theresa Mcgill Age: 45 yrs Sex: Female : 1975 Arrival Date: 07/06/2020 Time: 14:16 Bed 6 Private MD: KALLI Physician Jesse Awad HPI: 07/06 16:41 This 45 yrs old Black Female presents to ER via Ambulatory with complaints of Asthma jr8 Exacerbation - covid+. 16:41 The patient presents to the emergency department with wheezing, Current therapy: jr8 albuterol inhaler, steroid inhaler. Onset: The symptoms/episode began/occurred gradually, 1 week(s) ago. Modifying factors: The symptoms are alleviated by nothing, the symptoms are aggravated by nothing. Associated signs and symptoms: Pertinent positives: nausea. Severity of symptoms: At their worst the symptoms were mild in the emergency department the symptoms are unchanged. The patient has not experienced similar symptoms in the past. The patient has not recently seen a physician. 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 - Social history:: Smoking status: Patient denies any tobacco usage or history of. ROS: 16:41 Eyes: Negative for injury, pain, redness, and discharge, ENT: Negative for injury, jr8 pain, and discharge, Neck: Negative for injury, pain, and swelling, Cardiovascular: Negative for chest pain, palpitations, and edema, Back: Negative for injury and pain, MS/Extremity: Negative for injury and deformity, Skin: Negative for injury, rash, and discoloration, Neuro: Negative for headache, weakness, numbness, tingling, and seizure. 16:41 Respiratory: Positive for cough, dyspnea on exertion, shortness of breath. 16:41 Abdomen/GI: Positive for nausea, Negative for abdominal pain, vomiting, diarrhea, constipation, abdominal cramps, abdominal distension. Exam: 16:41 Eyes: Pupils equal round and reactive to light, extra-ocular motions intact. Lids and jr8 lashes normal. Conjunctiva and sclera are non-icteric and not injected. Cornea within normal limits. Periorbital areas with no swelling, redness, or edema. ENT: Nares patent. No nasal discharge, no septal abnormalities noted. Tympanic membranes are normal and external auditory canals are clear. Oropharynx with no redness, swelling, or masses, exudates, or evidence of obstruction, uvula midline. Mucous membranes moist. Neck: Trachea midline, no thyromegaly or masses palpated, and no cervical lymphadenopathy. Supple, full range of motion without nuchal rigidity, or vertebral point tenderness. No Meningismus. Cardiovascular: Regular rate and rhythm with a normal S1 and S2. No gallops, murmurs, or rubs. Normal PMI, no JVD. No pulse deficits. Respiratory: Lungs have equal breath sounds bilaterally, clear to auscultation and percussion. No rales, rhonchi or wheezes noted. No increased work of breathing, no retractions or nasal flaring. Abdomen/GI: Soft, non-tender, with normal bowel sounds. No distension or tympany. No guarding or rebound. No evidence of tenderness throughout. Back: No spinal tenderness. No costovertebral tenderness. Full range of motion. Skin: Warm, dry with normal turgor. Normal color with no rashes, no lesions, and no evidence of cellulitis. MS/ Extremity: Pulses equal, no cyanosis. Neurovascular intact. Full, normal range of motion. Neuro: Awake and alert, GCS 15, oriented to person, place, time, and situation. Cranial nerves II-XII grossly intact. Motor strength 5/5 in all extremities. Sensory grossly intact. Cerebellar exam normal. Normal gait. 16:41 ECG was reviewed by the Attending Physician. Vital Signs: 14:38 BP 114 / 83; Pulse 76; Resp 18 S; Temp 97.3(TE); Pulse Ox 97% on R/A; Weight 115.67 kg ca1 (R); Height 5 ft. 6 in. (167.64 cm) (R); 15:47 BP 109 / 79; Pulse 66; Resp 17; Pulse Ox 99% ; ll2 16:15 BP 113 / 79; Pulse 62; Resp 15; Pulse Ox 100% ; jl7 14:38 Body Mass Index 41.16 (115.67 kg, 167.64 cm) ca1 MDM: 15:04 Patient medically screened. [facility] 16:34 Data reviewed: vital signs, nurses notes, EKG, radiologic studies, plain films, and as jr8 a result, I will discharge patient. Data interpreted: Pulse oximetry: on room air is 99 %. Interpretation: normal. Counseling: I had a detailed discussion with the patient and/or guardian regarding: the historical points, exam findings, and any diagnostic results supporting the discharge/admit diagnosis, radiology results, the need for outpatient follow up, a family practitioner, to return to the emergency department if symptoms worsen or persist or if there are any questions or concerns that arise at home. ED course: Discussed with patient that she needs to continue albuterol and Symbicort at home. Will add systemic steroids. Continue to isolate and watch for increased work of breathing. If worse to come back for reevaluation . 07/06 15:12 Order name: XRAY Chest (1 view); Complete Time: 16:33 jr8 07/06 15:20 Order name: EKG - Nurse/Tech; Complete Time: 15:38 jr8 EC:41 Rate is 65 beats/min. Rhythm is regular, Normal Sinus Rhythm. QRS [place] is Normal. NM jr8 interval is normal at 174 msec. QRS interval is normal at 86 msec. QT interval is normal at 410 msec. No Q waves. T waves are Normal. No ST changes noted. Clinical impression: Normal ECG. Interpreted by me. Reviewed by me. Administered Medications: 15:38 Drug: Zofran (Ondansetron) 4 mg Route: PO; [facility] 16:05 Follow up: Response: No adverse reaction; Nausea unchanged jl 16:11 Drug: Phenergan 25 mg Route: PO; jl7 16:45 Follow up: Response: No adverse reaction; Nausea is decreased 7 Disposition: 07/07 08:20 Co-signature as Attending Physician, Jesse Awad MD I agree with the assessment and [facility] plan of care. Disposition: 07/06/20 16:35 Discharged to Home. Impression: Pneumonia due to SARS-associated coronavirus. - Condition is Stable. - Discharge Instructions: Antibiotic Resistance. - Prescriptions for Prednisone 20 mg Oral Tablet - take 2 tablets by ORAL route once daily for 7 days; 14 tablet. promethazine 25 mg Oral Tablet - take 1 tablet by ORAL route every 6 hours As needed; 20 tablet. - Medication Reconciliation Form, Thank You Letter, Antibiotic Education, Prescription Opioid Use form. - Follow up: Private Physician; When: 2 - 3 days; Reason: Recheck today's complaints, Continuance of care, Re-evaluation by your physician. - Problem is new. - Symptoms have improved. Signatures: Dispatcher [employer] EDMS Jesse Awad MD MD cha Roszak, Josh, PA PA jr8 Alden Dorman RN RN jl7 Deneen Gay RN RN ca1 Corrections: (The following items were deleted from the chart) 07/06 16:51 16:35 07/06/2020 16:35 Discharged to Home. Impression: Pneumonia due to SARS-associated jl7 coronavirus. Condition is Stable. Forms are Medication Reconciliation Form, Thank You Letter, Antibiotic Education, Prescription Opioid Use. Follow up: Private Physician; When: 2 - 3 days; Reason: Recheck today's complaints, Continuance of care, Re-evaluation by your physician. Problem is new. Symptoms have improved. jr8
--- NOTE | 2020-07-06 16:36 | ER ---
Nurse's Notes [facility] Name: Theresa Mcgill Age: 45 yrs Sex: Female : 1975 Arrival Date: 07/06/2020 Time: 14:16 Bed 6 Private MD: Diagnosis: Pneumonia due to SARS-associated coronavirus Presentation: 07/06 14:38 Chief complaint: Patient states: SOB at rest all weekend, worse this morning. HX of ca1 asthma and COVID+ on 06/29/2020. Reports breathing treatments and inhalers done with no relief. Coronavirus screen: Client denies travel out of the [place] in the last 14 days. congestion, cough unrelated to allergies, difficulty breathing, fatigue, headache, muscle pain, nausea, runny nose, shortness of breath, sore throat, loss of taste or smell, Client presents with at least one sign or symptom that may indicate coronavirus-19. Standard/surgical mask placed on the client. Provider contacted for isolation considerations. Client reports previous positive COVID test result. Date of collection: June 29, 2020. Ebola Screen: Patient negative for fever greater than or equal to 101.5 degrees Fahrenheit, and additional compatible Ebola Virus Disease symptoms Patient denies exposure to infectious person. Patient denies travel to an Ebola-affected area in the 21 days before illness onset. No symptoms or risks identified at this time. Initial Sepsis Screen: Does the patient meet any 2 criteria? No. Patient's initial sepsis screen is negative. Does the patient have a suspected source of infection? No. Patient's initial sepsis screen is negative. Risk Assessment: Do you want to hurt yourself or someone else? Patient reports no desire to harm self or others. Onset of symptoms was July 06, 2020. 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 - Social history:: Smoking status: Patient denies any tobacco usage or history of. Screenin:15 Abuse screen: Denies threats or abuse. Denies injuries from another. Nutritional jl7 screening: No deficits noted. Tuberculosis screening: No symptoms or risk factors identified. Fall Risk None identified. Assessment: 15:15 General: Appears in no apparent distress. uncomfortable, Behavior is calm, cooperative, jl7 appropriate for age. Pain: Complains of pain in anterior aspect of left upper chest Pain radiates to left scapular area Pain currently is 8 out of 10 on a pain scale. Quality of pain is described as "It feels sore on the inside with breathing." Pain began 1 day ago. Is continuous. Pain: Complains of pain in ORTIZ Pain currently is 10 out of 10 on a pain scale. Neuro: Level of Consciousness is awake, alert, obeys commands, Oriented to person, place, time, situation. Cardiovascular: Patient's skin is warm and dry. Respiratory: Reports shortness of breath at rest Airway is patent Respiratory effort is even, unlabored, Respiratory pattern is regular, symmetrical. GI: Abdomen is non-distended, Reports nausea. Derm: Skin is pink, warm \\T\\ dry. 15:38 Reassessment: ERP notified of nausea, see [facility] for orders. Pt reports Tylenol helps for jl7 ORTIZ for only an hour and then it's right back to hurting. Provided pt with cool compress to apply to head for ORTIZ, will continue to monitor. 16:01 Reassessment: Pt reports no change in ORTIZ, no change in nausea, ERP notified, see [facility]7 for orders. 16:46 Reassessment: Patient appears in no apparent distress at this time. Reports decreased jl7 nausea at this time Patient states feeling better. Patient states symptoms have improved. Vital Signs: 14:38 BP 114 / 83; Pulse 76; Resp 18 S; Temp 97.3(TE); Pulse Ox 97% on R/A; Weight 115.67 kg ca1 (R); Height 5 ft. 6 in. (167.64 cm) (R); 15:47 BP 109 / 79; Pulse 66; Resp 17; Pulse Ox 99% ; ll2 16:15 BP 113 / 79; Pulse 62; Resp 15; Pulse Ox 100% ; jl7 14:38 Body Mass Index 41.16 (115.67 kg, 167.64 cm) ca1 ED Course: 14:16 Patient arrived in ED. as 14:41 Triage completed. ca1 14:42 Arm band placed on right wrist. ca1 15:02 Aquiles Macias PA is PHCP. jr8 15:02 Jesse Awad MD is Attending Physician. jr8 15:08 Alden Dorman, RN is Primary Nurse. jl7 15:15 Patient has correct armband on for positive identification. Placed in gown. Bed in low jl7 position. Call light in reach. Side rails up X 1. pvc monitor on. Pulse ox on. NIBP on. 15:33 EKG done, by ED staff, reviewed by Aquiles FENTON. jl7 15:37 XRAY Chest (1 view) In Process Unspecified. EDMS 16:51 No provider procedures requiring assistance completed. Patient did not have IV access jl7 during this emergency room visit. Administered Medications: 15:38 Drug: Zofran (Ondansetron) 4 mg Route: PO; jl7 16:05 Follow up: Response: No adverse reaction; Nausea unchanged jl7 16:11 Drug: Phenergan 25 mg Route: PO; jl7 16:45 Follow up: Response: No adverse reaction; Nausea is decreased jl7 Outcome: 16:35 Discharge ordered by . jr8 16:51 Discharged to home ambulatory. jl7 16:51 Condition: stable 16:51 Discharge instructions given to patient, Instructed on discharge instructions, follow up and referral plans. medication usage, Demonstrated understanding of instructions, follow-up care, medications, Prescriptions given X 2. 16:51 Patient left the ED. jl7 Signatures: Dispatcher [employer] EDMS Neda Corona Josh, PA PA jr8 Alden Dorman, RN RN jl7 Deneen Gay RN RN ca1 Alba Workman RN RN ll2
[2020-07-06 17:20] VITALS: TEMP 97.3
[2020-07-06 17:22] VITALS: BP 113/79; O2SAT 100
--- NOTE | 2020-07-08 05:55 | EKG ---
Test Date: 2020-07-06 Test Time: 15:26:53 Program Aide: DENNIS MEASUREMENT RESULTS: Intervals: Rate: 65 MA: 174 QRSD: 86 QT: 424 QTc: 440 [place]: P: 60 MA: 174 QRS: 11 T: 39 INTERPRETIVE STATEMENTS: Normal sinus rhythm Normal ECG Compared to ECG 05/08/2019 20:19:22 Sinus bradycardia no longer present Electronically Signed On 07-08-20 05:50:40 CDT by Marlon Rosales
== END 2020-07-06 16:51 | disposition home or self-care (01) ==
LOC: ER 14:15
DX: J12.81 Pneumonia due to SARS-associated coronavirus (principal); I10 Essential (primary) hypertension; E78.5 Hyperlipidemia, unspecified; J45.909 Unspecified asthma, uncomplicated
CPT/HCPCS: 71045; 93005; 99284; Q0169

== ENCOUNTER 2021-04-29 20:20 | Emergency (ER) | payer OTHER ==
--- OUTSIDE RECORDS SUMMARY | 2021-04-29 20:23 | XMS REPORT | Continuity of Care Document ---
:1975 Author Organization [facility] t Address [address] [place] [place] [address] Care Team Providers Name Role Phone Sharpless Primary Care Physician Doctor Unassigned, Name Attending Clinician Unavailable Lab, Fam Pob I Attending Clinician Unavailable Payers Payer Name Policy Type Policy Number Effective Date Expiration Date S ource Problems This patient has no known problems. Allergies, Adverse Reactions, Alerts Allergy Allergy Status Severity Reaction(s) Onset Inactive Treating Comm ents Source Name Type Date Date Clinician No Known DA Active U [facility] Allergie 11-18 [place] [facility] 00:00: d 00 [facility] [place] Social History Social Habit Start Date Stop Date Quantity Comments Source Sex Assigned At [facility] Alcohol intake 2016-03-08 2016-03-08 Current [facility] - 00:00:00 00:00:00 non-drinker of Medical Ce nter alcohol (finding) Smoking Status Start Date Stop Date Source Never smoker [facility] Medications Ordered Filled Start Stop Current Ordering Indication Dosage Frequency Signature Comments Components Source Medication Medication Date Date Medication? Clinician (SIG) Name Name Tramadol Tramadol 2020- No Beth [address] [facility] HCl HCl 05-19 08-07 Millender as needed Luke s - 00:00: 00:00 for severe Memori a 00 :00 pain l [facility] Indomethaci Indomethaci 2020- No Beth [address] [facility] n n 7 08- Millender with food Luke s - 00:00: 00:00 or milk Memoria 00 :00 l [facility] ent [facility] Albuterol Albuterol Yes Beth [address] [facility] Sulfate HFA Sulfate HFA 6-25 Millender needed [facility] - [facility]: Mem[facility] 00 l [facility] Rosuvastati Rosuvastati Yes Beth [address] [facility] n Calcium n Calcium 4-03 Millender [facility] - 00:[facility]: Memoria 00 l [facility] ent [facility] fluticasone Yes 1{puff} Inhale [address] [facility] -salmeterol 5-17 puff by [facility] - (ADVAIR) 13:53: mouth via Medi katie 250-50 27 inhaler Center mcg/dose every 12 diskus (twelve) inhaler hours. albuterol Yes 2.5mg Take 2.[address] [facility] (PROVENTIL) 5-17 mg by [facility] - 2.5 mg/0.5 13:53: nebulizati M edical mL Nebu 27 on. Center nebulizer solution budesonide- Yes 2{puff} Q.5D Inhale [address] [facility] formoterol 5-17 puffs by [facility] - (SYMBICORT) 13:53: mouth via M edical 80-4.5 27 inhaler 2 Center mcg/actuati (two) on inhaler times daily. diflupredna Yes Q.25D Apply to [facility] te 0.05 % 5-17 eye(s) 4 [facility] - Drop 13:53: (four) Medical 27 times Center daily. prednisoLON Yes 1[drp] Q.25D [address] [facility] E acetate 5-17 (four) [facility] - (PRED 13:53: times Medical FORTE) 1 % 27 daily. Center ophthalmic suspension polymyxin B 2016-0 Yes 1[drp] Place [address] sulf-trimet 5-17 drop into [facility] 13:53: the left Medical 10,000 27 eye every Center unit- 1 4 (four) mg/mL Drop hours. Albuterol Albuterol Yes Beth [address] [facility] Sulfate Sulfate Millender needed [facility] Albuterol Albuterol Yes Beth not [facility] Millender defined [facility] ProAir HFA ProAir HFA Yes Beth [address] [facility] Millender needed [facility] Bystolic Bystolic Yes Beth [address] [facility] Symbicort Symbicort No Beth [address] [facility] 07-15 Millender [facility] Procedures This patient has no known procedures. Encounters Start End Encounter Admission Attending Care Care Encounter Source Date/Time Date/Time Type Type Clinicians Facility Department ID 2021-03-25 2021-03-25 [facility] [id number] 2021-03-19 2021-03-19 [facility] [id number] [facility] 2021-03-10 2021-03-10 [facility] [id number] [facility] 2021-02-22 2021-02-22 [facility] [id number] [facility] 2020-12-24 2020-12-24 [facility] [id number] [facility] 2020-12-14 2020-12-14 [facility] [id number] [facility] 2020-11-24 2020-11-24 [facility] [id number] [facility] 2020-11-18 2020-11-18 [facility] [id number] [facility] 2020-10-30 2020-10-30 [facility] [id number] [facility] 2020-10-30 2020-10-30 [facility] [id number] [facility] 2020-10-27 2020-10-27 [facility] [id number] [facility] 2020-07-23 2020-07-23 [facility] [id number] [facility] 2020-07-14 2020-07-14 [facility] [id number] [facility] 2020-07-07 2020-07-07 [facility] [id number] [facility] 2020-07-02 2020-07-02 [facility] [id number] [facility] 13:40:00 13:40:00 [facility] Family Medicine l Medicine Outpati ent Clinics 2020-06-05 2020-06-05 Patient Doctor COLEMAN [id number] 00:00:00 00:00:00 Secure Msg Unassigned, REGINA [id number] [place] [facility] [id number] 2020-06-04 2020-06-04 Laboratory Lab, [facility] [id number] 16:45:31 17:05:31 Only Fam Pob I [facility] [id number] [place] [id number] [place] [id number] nal [address] 2020-06-04 2020-06-04 Letter Doctor COLEMAN [id number] 00:00:00 00:00:00 (Out) Unassigned, REGINA [id number] [place] [facility] [id number] 2020-05-19 2020-05-19 [facility] [id number] [address] 16:20:00 16:20:00 [facility] Medicine Outpati ent Clinics 2020-05-15 2020-05-15 [facility] [id number] 14:40:00 14:40:00 [facility] Medicine Outpati ent Clinics 2020-04-16 2020-04-16 [facility] [id number] 10:00:00 10:00:00 [facility] Medicine Medicine Outpati ent Clinics 2020-01-23 2020-01-23 [facility] [id number] 10[facility]28:00 10:28:00 [facility] Medicine Outpati ent Clinics 2020-01-15 2020-01-15 [facility] [id number] 15:14:00 15:14:00 [facility] Medicine Outpati ent Clinics 2020-01-15 2020-01-15 [facility] [id number] 14:00:00 14:00:00 [facility] Medicine Outpati ent Clinics Results Test Description Test Time Test Comments Results Result Comments Source SURG 2020-11-23 15:46:00 Test Item Value Reference Range Interpretation Comme nts SURG RUN DATE: (test 11/23/20 H DAR[facility]O [facility] [place] - LAB PAGE 1 RUN TIME: 1543 code = Specimen Inquiry RUN USER: INTERFACE SURG) PATIENT: SOCORRO HERNANDEZ LOC: [facility] U #: [id number] AGE/SX: 45/ F ROOM: RE11/19/20[facility] DR: Stephanie Sutton : 77 BED: DIS: STATUS: DEP [facility] TLOC: SPEC #: [id number] RECD: STATUS: YEIMI REQ #: [id number] LINDA: 11/19/20 [facility] DR: Stephanie Sutton MD ENTERED: 11/20/20 SP TYPE: SURG OTHR DR: DOES_NOT KNOW Undefined ProviderORDERED: SURG PATH LVL 5 COPIES TO: DOES_NOT KNOW Stephanie Sutton MD [address] [place] [id number] Undefined Provider HISTOLOGY: TISSUE ID BLK PCS SAVI LEV PROCEDURE DISPOSITION ____ ___ ___ ___ UTERUS, NOS A 1 1 PROCEDURES: SURG PATH LVL 5 (11/20/20) TISSUES: A. UTERUS, NOS - UTERUS, CERVIX AND BILATERAL FALLOPIAN TUBE CLINICAL HISTORY EXCESSIV E MENSTRUATION - N92.0; PROLAPSE - N81.2; INCONTINENCE - N39.3 CPT CODES CPT CODE(S): 88 307 , , , , , , FINAL DIAGNOSIS Uteru s, cervix and bilateral fallopian tubes, hysterectomy and bilateral salpingectomy: CHRONIC CERVICITIS WITH NABOTHIAN CYSTS PROLIFERATIVE PHASE ENDOMETRIUM LEIOMYOMAS BILATERAL FALLO PIAN TUBES WITH PARATUBAL CYSTS CONTINUED ON NEXT PAGE RUN DATE: 11/23/20 [facility] [place] - LAB PAGE 2 RUN TIME: 1547 Specimen Inquiry RUN USER: INTERFACE SPEC #: [id number] PATIENT: SATHISH HERNANDEZA #[id number] (Continued) GROSS DESCRIPTION Uterus, cervix and bilateral fallopian tubes. Received in formalin is a 158.2-gram hysterectomy and bilateral salpingectomy specimen, including a uterus with attached cervix (9.6 x 6.3 x 4.7 cm) lathe winder d segment of left fallopian tube with fimbriated end (5.0 x 1.0 x 0.8 cm), and attached segment of ri ght fallopian tube with fimbriated end (5.3 x 1.0 x 1.0 cm). The serosal surface is wilkins-brown smooth and glistening. The cervix, 3.8 x 3.5 x 3.0 cm (depth), is covered by wilkins-mejia exocervix and wi th an ovoid os, 1.0 cm. The cervix has several cysts, (largest is 0.5 cm, containing translucent vis cous fluid. The endometrial cavity measures 2.7 cm from cornu to cornu x 4.0 cm in length with a hemo rrhagic endometrium, 0.3 cm. The myometrium is maximally 2.5 cm in thickness and contains two ( 2) intramural nodules 0.5 and 1.5 cm in greatest dimension. The nodules have homogenous wilkins cut surf aces with the whorled appearance and without hemorrhage or necrosis. The myometrium likewise has ar eas with small spaces with hemorrhagic fluid. The left fallopian tube is previously interrupted, i s serially sectioned, has a patent lumen and is grossly unremarkable except for an attached thin- walled paratubal cyst, 0.5 cm in greatest dimension. The right fallopian tube is previously interru pted, is serially sectioned, has a patent lumen and is grossly unremarkable. Representativ e sections submitted. ba/nr Section code: A1 Anterior cervix A2 Posterior cervix A3-A4 Anterior endometrium/myometrium A5-A6 Posterior endometrium/myometrium A7- A8 Large intramural nodule A9 Small intramural nodule A10 Serosa (posterior cul-de-sac ) A11 Entire fimbriated and paratubal cyst, left fallopian tube A12 Cross section of left f allopian tube A13 Entire fimbriated end of right fallopian tube A14 Cross section of right fallopian tube Grossing performed at [facility], [address], [address], [place], [place] [address]. Dry Cell Tester: Elliot Tariq M.D. MICROSCOPIC DESCRIPTION U terus, cervix and bilateral fallopian tubes. Sections demonstrate squamous ectocervix and glandular end ocervix. Mild chronic cervicitis and nabothian cysts are identified. Portions of the endometrium demonstrateproliferative phase endometrium. No evidence of hyperplasia or atypia is seen. the myomet rium demonstrates occasional spindle cell nodules with no evidence of malignant features.section d emonstrate no evidence of endometrial glands or stroma. Sections of the fallopian tube demonstrate i nclude cross sections of fallopian tube and fimbriated end. Paratubal cysts are also identified. CONTINUED ON NEXT PAGE RUN DATE: 11/23/20 H D[facility] PAGE 3 RUN TIME: 1547 Specimen Inquiry RUN USER: INTERFACE SPEC #: [facility]:[id number] PATIENT: DAVIDSOCORRO #[id number] (Continued) Signed SIGNATURE ON FILE Jayjay Schultz 11/23/20 1546 END OF REPORT COVID 19 INHOUSE [id number] 11:47:00 Test Item Value Reference Range Interpretation Comments COVID 19 INHOUSE AG NEGATIVE Negative Per [facility] facturer, (test code = negative result s should [id number]) be treated aspr esumptive and, if inconsi stent with clinical signs andsymptoms or necessary for patient man agement, should betested with an alternative mol ecular assay. Negative resultsdo not preclude SA RS-CoV-2 infection and s hould not be usedas the s ole basis for patient man agement decisions. Neg ative results should be considered in t he context of apatient's r ecent exposures, hist ory, presence of cli nicalsigns and symptoms co nsistent with COVID-19. BASIC METABOLIC [id number] 11:43:00 Test Item Value Reference Range Interpretation Comments SODIUM (test code = NA) 140 mmol/L 134-147 N POTASSIUM (test code = 3.9 mmol/L 3.4-5.0 N K) CHLORIDE (test code = 107 mmol/L 100-108 N CL) CARBON DIOXIDE (test 28 mmol/L 21-32 N code = CO2) ANION GAP (test code = 5.0 GAP calc 4.0-15.0 N GAP) GLUCOSE (test code = 81 MG/DL 70-110 N GLU) BLOOD UREA NITROGEN 8 MG/DL 7-18 N (test code = BUN) GLOMERULAR FILTRATION >=60 max estimate >60 RATE (test code = GFR) estGFR CREATININE (test code = 0.7 MG/DL 0.6-1.0 N CREAT) CALCIUM (test code = CA) 8.7 MG/DL 8.5-10.1 N PROTHROMBIN [id number] 11:39:00 Test Item Value Reference Range Interpretation Comments PT PATIENT (test code = PTP) 11.3 SECONDS 9.3-12.9 N INTERNATIONAL NORMAL RATIO 1.01 INR Unit 0.8-1.2 N (test code = INR) THROMBOPLASTIN TIME [id number] 11:39:00 Test Item Value Reference Range Interpretation Comments THROMBOPLASTIN TIME PARTIAL 32.6 SECONDS 26-35 N (test code = PTT) CBC W/AUTO [id number] 11:37:00 Test Item Value Reference Range Interpretation Comments WHITE BLOOD CELL (test code = 4.8 K/mm3 3.5-11.0 N WBC) RED BLOOD CELL (test code = 4.20 M/mm3 4.70-6.10 L RBC) HEMOGLOBIN (test code = HGB) 13.7 G/DL 10.4-14.9 N HEMATOCRIT (test code = HCT) 41.7 % 31.5-44.1 N MEAN CELL VOLUME (test code = 99.3 Fl 84.5-98.6 H MCV) MEAN CELL HGB (test code = MCH) 32.6 pg 27.0-34.2 N MEAN CELL HGB CONCETRATION 32.9 G/DL 31.5-34.0 N (test code = MCHC) RED CELL DISTRIBUTION WIDTH 12.8 SD 11.5-14.5 N (test code = RDW) PLATELET COUNT (test code = 228 K/mm3 150-450 N PLT) MEAN PLATELET VOLUME (test code 10.50 fL 7.0-10.5 N = MPV) NEUTROPHIL % (test code = NT%) 52.9 % 40-76 N IMMATURE GRANULOCYTE % (test 0.4 % 0.0-5.0 N code = IG%) LYMPHOCYTE % (test code = LY%) 34.2 % 20.5-51.1 N MONOCYTE % (test code = MO%) 9.6 % 1.7-9.3 H EOSINOPHIL % (test code = EO%) 2.7 % 0.0-6.0 N BASOPHIL % (test code = BA%) 0.2 % 0.0-2.0 N NUCLEATED RBC % (test code = 0.0 /100WBC% 0.0-1.0 N NRBC%) NEUTROPHIL # (test code = NT#) 2.5 K/mm3 1.8-7.6 N IMMATURE GRANULOCYTE # (test 0.02 x10 3/uL 0.00-0.03 N code = IG#) LYMPHOCYTE # (test code = LY#) 1.6 K/mm3 0.6-3.2 N MONOCYTE # (test code = MO#) 0.5 K/mm3 0.3-1.1 N EOSINOPHIL # (test code = EO#) 0.1 K/mm3 0.0-0.4 N BASOPHIL # (test code = BA#) 0.0 K/mm3 0.0-0.1 N NUCLEATED RBC # (test code = 0.0 K/mm3 0.0-0.1 N NRBC#) MANUAL DIFF REQUIRED (test code NO DIFF/SCN CRITERIA = MDIFF) URINALYSIS [id number] 11:27:00 Test Item Value Reference Range Interpretation Comments UA GLUCOSE DIPSTICK (test NEGATIVE mg/dL NEG code = DGLUU) UA BILIRUBIN DIPSTICK (test NEGATIVE mg/dL NEG code = BILU) UA KETONE DIPSTICK (test TRACE mg/dL NEG code = KETU) UA SPECIFIC GRAVITY (test 1.025 SG 1.005-1.030 code = SGU) UA BLOOD DIPSTICK (test NEGATIVE mg/DL NEG code = SOFIA) UA PH DIPSTICK (test code = 5.5 pH UNITS 5.0-7.0 IVAN) UA PROTEIN DIPSTICK (test NEGATIVE mg/dL NEG code = PROU) UA UROBILINIOGEN DIPSTICK 1.0 mg/dL <2.0 (test code = URO) UA NITRITE DIPSTICK (test NEGATIVE SCREEN NEG code = MARÍA) UA LEUKOCYTE ESTERASE NEGATIVE Leuk/mcL NEGATIVE DIPSTICK (test code = LEUU) Urine Specimen Type: Clean CatchUR HCG [id number] 11:27:00 Test Item Value Reference Range Interpretation Comments UR HCG QUAL (test code = HCGQLU) NEGATIVE Urine Specimen Type: Clean CatchURINALYSIS [id number] 11:27:00 Test Item Value Reference Range Interpretation Comments UA GLUCOSE DIPSTICK (test NEGATIVE mg/dL NEG code = DGLUU) UA BILIRUBIN DIPSTICK (test NEGATIVE mg/dL NEG code = BILU) UA KETONE DIPSTICK (test TRACE mg/dL NEG code = KETU) UA SPECIFIC GRAVITY (test 1.025 SG 1.005-1.030 code = SGU) UA BLOOD DIPSTICK (test NEGATIVE mg/DL NEG code = SOFIA) UA PH DIPSTICK (test code = 5.5 pH UNITS 5.0-7.0 IVAN) UA PROTEIN DIPSTICK (test NEGATIVE mg/dL NEG code = PROU) UA UROBILINIOGEN DIPSTICK 1.0 mg/dL <2.0 (test code = URO) UA NITRITE DIPSTICK (test NEGATIVE SCREEN NEG code = MARÍA) UA LEUKOCYTE ESTERASE NEGATIVE Leuk/mcL NEGATIVE DIPSTICK (test code = LEUU) Urine Specimen Type: Clean CatchUR HCG [id number] 11:27:00 Test Item Value Reference Range Interpretation Comments UR HCG QUAL (test code = HCGQLU) NEGATIVE NEGATIVE Urine Specimen Type: Clean Catch
--- NOTE | 2021-04-29 23:50 | ER ---
Nurse's Notes [facility] Name: Theresa Mcgill Age: 46 yrs Sex: Female : 1975 Arrival Date: 04/29/2021 Time: 21:39 Bed 25 Private MD: Diagnosis: Unspecified asthma with (acute) exacerbation Presentation: 04/29 21:56 Chief complaint: Patient states: she has been having SOB x 1 week thought it was her bb asthma but her asthma medication is not working her doctor told her to come to the ED to get checked out. Coronavirus screen: difficulty breathing, Client presents with at least one sign or symptom that may indicate coronavirus-19. Standard/surgical mask placed on the client. Ebola Screen: No symptoms or risks identified at this time. Initial Sepsis Screen: Does the patient meet any 2 criteria? No. Patient's initial sepsis screen is negative. Does the patient have a suspected source of infection? No. Patient's initial sepsis screen is negative. Risk Assessment: Do you want to hurt yourself or someone else? Patient reports no desire to harm self or others. Onset of symptoms was April 22, 2021. 21:56 Method Of Arrival: Ambulatory bb 21:56 Acuity: PAULINE 3 bb Triage Assessment: 21:59 General: Appears in no apparent distress. uncomfortable, Behavior is cooperative, bb listless. Pain: Denies pain. Neuro: Level of Consciousness is awake, alert, obeys commands, Oriented to person, place, time, situation. Cardiovascular: Heart tones S1 S2 present. Respiratory: Respiratory effort is unlabored, Breath sounds are diminished bilaterally. Derm: Skin is dry, Skin is normal, Skin temperature is warm. Musculoskeletal: Circulation, motion, and sensation intact. 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 - Social history:: Smoking status: Patient denies any tobacco usage or history of. Screenin:30 Abuse screen: Denies threats or abuse. Nutritional screening: No deficits noted. em Tuberculosis screening: No symptoms or risk factors identified. Fall Risk None identified. Assessment: 22:37 Reassessment: No changes from previously documented assessment. Patient is alert, bb oriented x 3, equal unlabored respirations, skin warm/dry/pink. see triage assessment. 23:38 Reassessment: Patient is alert, oriented x 3, equal unlabored respirations, skin bb warm/dry/pink. pt resting quietly awaiting diagnostic results. Vital Signs: 21:56 BP 133 / 80; Pulse 65; Resp 20; Temp 98.6(O); Pulse Ox 98% on R/A; Weight 113.4 kg (R); bb Height 5 ft. 6 in. (167.64 cm) (R); Pain 0/10; 22:37 BP 127 / 78; Pulse 51; Resp 16 S; Pulse Ox 99% on R/A; bb 23:39 BP 148 / 99; Pulse 62; Resp 16 S; Pulse Ox 98% on R/A; bb 21:56 Body Mass Index 40.35 (113.40 kg, 167.64 cm) bb ED Course: 21:39 Patient arrived in ED. bb 21:59 Triage completed. bb 21:59 Arm band placed on Patient placed in waiting room, Patient notified of wait time. bb 22:23 Callie Olivares [facility]-C [facility] kb 22:23 Jesse Awad MD is Attending Physician. kb 22:29 Olaf Lucia, RN is Primary Nurse. em 22:30 Patient has correct armband on for positive identification. em 22:55 Chest Single View XRAY In Process Unspecified. EDMS 23:57 No provider procedures requiring assistance completed. Patient did not have IV access em during this emergency room visit. Administered Medications: 23:57 Drug: predniSONE 40 mg Route: PO; em 23:59 Follow up: Response: Medication administered at discharge. em Outcome: 23:50 Discharge ordered by . kb 23:57 Discharged to home ambulatory. em 23:57 Condition: stable 23:57 Discharge instructions given to patient, Instructed on discharge instructions, follow up and referral plans. medication usage, Demonstrated understanding of instructions, follow-up care, medications, Prescriptions given X 2. 07/09 00:00 Patient left the ED. em Signatures: Dispatcher [employer] Callie Hinkle, ABHI FINNEGAN-Olaf Mcelroy, RN RN Beatrice Russell RN RN bb Corrections: (The following items were deleted from the chart) 04/29 22:01 21:59 PSHx: Total abdominal hysterectomy; grady rasmussen
--- NOTE | 2021-04-29 23:50 | EDPHYS ---
Physician Documentation [facility] Name: Theresa Mcgill Age: 46 yrs Sex: Female : 1975 Arrival Date: 04/29/2021 Time: 21:39 Bed 25 Private MD: KALLI Physician Jesse Awad HPI: 04/29 23:48 This 46 yrs old Black Female presents to ER via Ambulatory with complaints of Shortness kb Of Breath. 23:48 The patient has shortness of breath at rest. Onset: The symptoms/episode began/occurred kb 1 week(s) ago. Duration: The symptoms are continuous. The patient's shortness of breath is aggravated by exertion, is alleviated by nothing. Associated signs and symptoms: The patient has no apparent associated signs or symptoms. Severity of symptoms: At their worst the symptoms were moderate in the emergency department the symptoms are unchanged. The patient has experienced similar episodes in the past, a few times. The patient has not recently seen a physician. Pt reports shortness of breath for a week. 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 - Social history:: Smoking status: Patient denies any tobacco usage or history of. ROS: 23:48 Constitutional: Negative for fever, chills, and weight loss. kb 23:48 Respiratory: Positive for shortness of breath, Negative for cough, dyspnea on exertion, hemoptysis, orthopnea, pleurisy, sputum production, wheezing. 23:48 All other systems are negative. Exam: 23:48 Constitutional: This is a well developed, well nourished patient who is awake, alert, kb and in no acute distress. Head/Face: Normocephalic, atraumatic. ENT: Moist Mucous membranes Cardiovascular: Regular rate and rhythm with a normal S1 and S2. No gallops, murmurs, or rubs. No pulse deficits. Respiratory: Respirations even and unlabored. No increased work of breathing, no retractions or nasal flaring. Abdomen/GI: Soft, non-tender. No distention Skin: Warm, dry with normal turgor. Normal color. MS/ Extremity: Pulses equal, no cyanosis. Neurovascular intact. Full, normal range of motion. Neuro: Awake and alert, GCS 15, oriented to person, place, time, and situation. Moves all extremities. Normal gait. Psych: Awake, alert, with orientation to person, place and time. Behavior, mood, and affect are within normal limits. Vital Signs: 21:56 BP 133 / 80; Pulse 65; Resp 20; Temp 98.6(O); Pulse Ox 98% on R/A; Weight 113.4 kg (R); bb Height 5 ft. 6 in. (167.64 cm) (R); Pain 0/10; 22:37 BP 127 / 78; Pulse 51; Resp 16 S; Pulse Ox 99% on R/A; bb 23:39 BP 148 / 99; Pulse 62; Resp 16 S; Pulse Ox 98% on R/A; bb 21:56 Body Mass Index 40.35 (113.40 kg, 167.64 cm) bb MDM: 22:24 Patient medically screened. kb 23:46 Data reviewed: vital signs, nurses notes. Data interpreted: Pulse oximetry: on room air kb is 98 %. Interpretation: normal. Counseling: I had a detailed discussion with the patient and/or guardian regarding: the historical points, exam findings, and any diagnostic results supporting the discharge/admit diagnosis, lab results, radiology results, the need for outpatient follow up, a family practitioner, to return to the emergency department if symptoms worsen or persist or if there are any questions or concerns that arise at home. 04/29 23:42 Order name: SARS-COV-2 RT PCR; Complete Time: 23:46 EDMS 04/29 22:36 Order name: Chest Single View XRAY kb Administered Medications: 23:57 Drug: predniSONE 40 mg Route: PO; em 23:59 Follow up: Response: Medication administered at discharge. em Disposition Summary: 04/29/21 23:50 Discharge Ordered Location: Home kb Condition: Stable kb Diagnosis - Unspecified asthma with (acute) exacerbation kb Followup: kb - With: Private Physician - When: 2 - 3 days - Reason: Recheck today's complaints, Continuance of care, Re-evaluation by your physician Followup: kb - With: Emergency Department - When: As needed - Reason: Worsening of condition Discharge Instructions: - Discharge Summary Sheet kb - Asthma, Adult, [id number] kb Forms: - Medication Reconciliation Form kb - Thank You Letter kb - Antibiotic Education kb - Prescription Opioid Use kb Prescriptions: - Prednisone 20 mg Oral Tablet - take 1 tablet by ORAL route once daily for 5 days; 5 tablet; Refills: 0, kb Product Selection Permitted - Zithromax Z-Dickson 250 mg Oral Tablet - take 1 tablet by ORAL route as directed for 5 days Day 1 - take two (2) tablets kb one time. Day 2, 3, 4 , 5 take one (1) tablet once daily.; 6 tablet; Refills: 0, Product Selection Permitted Addendum: 05/03/2021 07:35 Co-signature as Attending Physician, Jesse Awad MD I agree with the assessment and c oliva plan of care. Signatures: Dispatcher [employer] Callie Hinkle, KAIN-C DEPUTY HEAD-Jesse Whitt MD MD cha Munoz, Edgar, RN RN Beatrice Russell, RN RN bb Corrections: (The following items were deleted from the chart) 04/29 22:01 21:59 PSHx: Total abdominal hysterectomy; bb bb 22:51 22:36 CORONAVIRUS+MRCHENCHOBRZ ordered. [facility]
[2021-04-30] MEDS ORDERED: predniSONE 20 MG TAB ONE (00:15)
[2021-04-30 01:23] VITALS: TEMP 98.6
[2021-04-30 01:26] VITALS: BP 148/99; O2SAT 98
--- NOTE | 2021-04-30 07:11 | RAD REPORT ---
EXAM DESCRIPTION: RAD - Chest Single View - 04/29/2021 10:55 pm CLINICAL HISTORY: DYSPNEA COMPARISON: Chest Pa And Lat (2 Views) dated 11/06/2020; Chest Single View dated 07/06/2020; Chest Sin gle View dated 05/08/2019; Chest Single View dated 09/23/2016 FINDINGS: No edema or consolidation. Enlarged cardiopericardial silhouette which may be related to p ortable technique. No fractures are identified. IMPRESSION: No acute cardiopulmonary disease.
== END 2021-04-30 | disposition home or self-care (01) ==
LOC: ER 20:20
DX: J45.901 Unspecified asthma with (acute) exacerbation (principal); I10 Essential (primary) hypertension; Z20.822 Contact with and (suspected) exposure to COVID-19
CPT/HCPCS: 71045; 99283; U0003; J7512

== ENCOUNTER → 2023-10-17 | Emergency (ER) | payer OTHER ==
--- NOTE | 2023-10-17 16:28 | RAD REPORT ---
EXAM DESCRIPTION: RAD - Foot Right 3 View - 10/17/2023 4:18 pm CLINICAL HISTORY: PAIN COMPARISON: FOOT W OBLIQUES dated 04/16/2009 FINDINGS/IMPRESSION: No acute fracture. No malalignment. Spurring at the first MTP joint. Plantar as pect calcaneal spur.
--- NOTE | 2023-10-17 16:28 | RAD REPORT ---
EXAM DESCRIPTION: RAD - Tib Fib Right - 10/17/2023 4:18 pm CLINICAL HISTORY: PAIN COMPARISON: No comparisons FINDINGS/IMPRESSION: No acute fracture. No malalignment. No significant focal degenerative changes.
--- NOTE | 2023-10-17 16:32 | EDPHYS ---
Physician Documentation [facility] Name: Theresa Mcgill Age: 48 yrs Sex: Female : 1975 Arrival Date: 10/17/2023 Time: 14:55 Bed 10 Private MD: ED Physician Krystian So HPI: 10/17 15:22 This 48 yrs old Black Female presents to ER via Ambulatory with complaints of Fall ec2 Injury, Foot Injury. 15:22 Patient arrives today for evaluation of right lower extremity pain. States that she was ec2 walking subsequently tripped on a stair and injured her leg. Patient reports no head strike, no loss of consciousness. Denies any head or neck pain. Reports pain from the knees down to the foot.. Historical: - Allergies: 15:14 No Known Allergies; ll1 - PMHx: 15:14 Hypertension; Hyperlipidemia; Asthma; ll1 - PSHx: 15:14 eye surgery; hysterectomy; ll1 - Immunization history:: Adult Immunizations up to date. - Social history:: Smoking status: Patient denies any tobacco usage or history of. ROS: 15:22 Constitutional: as per hpi ec2 Exam: 15:22 Constitutional: GEN: NAD Head: atraumatic Eyes: EOMI Ears: External ears are ec2 normal. CV: regular rate LUNGS: no respiratory distress ABD: non-distended SKIN: no evidence of rashes MSK: Right lower extremity with TTP to the proximal tibia, ankle, dorsum of the foot. No evidence of trauma or deformities or significant ecchymosis, soft tissue swelling noted. Intact distal neurovascular status. NEURO: moves all extremities equally Vital Signs: 15:15 BP 111 / 67; Pulse 65; Resp 18; Temp 98.1; Pulse Ox 99% ; Weight 112.49 kg; Height 5 ll1 ft. 6 in. ; Pain 9/10; 15:15 Body Mass Index 40.03 (112.49 kg, 167.64 cm) ll1 15:15 Pain Scale: Adult ll1 MDM: 15:22 Patient medically screened. ec2 15:22 Data reviewed: vital signs. ED course: Patient arrives today for evaluation of right ec2 lower extremity pain. Examination remarkable for MSK findings as noted above. Will obtain radiographs of the affected area. Currently considering sprain, strain, low suspicion for fracture.. 16:31 ED course: Right tib-fib x-ray and foot x-ray show no bony fracture. Suspect sprain ec2 causing the patient's pain and discomfort. Will discharge home and instructed on [id number] medications. Return precautions given. . 10/17 15:22 Order name: Tib Fib Right XRAY; Complete Time: 16:30 ec2 10/17 16:19 Order name: Foot Right 3 View; Complete Time: 16:30 EDMS Administered Medications: No medications were administered Disposition Summary: 10/17/23 16:31 Discharge Ordered Notes: Location: Home ec2 Condition: Stable ec2 Diagnosis - Sprain of foot ec2 Followup: ec2 - With: Private Physician - When: - Reason: Recheck today's complaints Discharge Instructions: - Discharge Summary Sheet ec2 - Foot Sprain ec2 Forms: - Medication Reconciliation Form ec2 - Thank You Letter ec2 - Antibiotic Education ec2 - Prescription Opioid Use ec2 - Patient Portal Instructions ec2 - Leadership Thank You Letter ec2 Signatures: Dispatcher [employer] Dionne Duval RN RN ll1 Krystian So MD MD ec2 Corrections: (The following items were deleted from the chart) 15:38 15:23 Ankle Right 3 View+RAD.RAD.BRZ ordered. EDMS EDMS 15:38 15:23 Knee Right 3 View+RAD.RAD.BRZ ordered. EDMS EDMS 16:19 15:23 Foot Left 3 View+RAD.RAD.BRZ ordered. EDMS EDMS
--- NOTE | 2023-10-17 16:32 | ER ---
Nurse's Notes [facility] Name: Theresa Mcgill Age: 48 yrs Sex: Female : 1975 Arrival Date: 10/17/2023 Time: 14:55 Bed 10 Private MD: Diagnosis: Sprain of foot Presentation: 10/17 15:15 Chief complaint: Patient states: Tripped on stairs last night. R foot and R toes pain ll1 since. Coronavirus screen: Client denies travel out of the [place] in the last 14 days. At this time, the client does not indicate any symptoms associated with coronavirus-19. Ebola Screen: Patient denies travel to an Ebola-affected area in the 21 days before illness onset. Initial Sepsis Screen: Does the patient meet any 2 criteria? No. Patient's initial sepsis screen is negative. Does the patient have a suspected source of infection? Yes: Bone or joint infection. Risk Assessment: Do you want to hurt yourself or someone else? Patient reports no desire to harm self or others. Onset of symptoms was October 16, 2023. 15:15 Method Of Arrival: Ambulatory ll1 15:15 Acuity: PAULINE 4 ll1 Historical: - Allergies: 15:14 No Known Allergies; ll1 - PMHx: 15:14 Hypertension; Hyperlipidemia; Asthma; ll1 - PSHx: 15:14 eye surgery; hysterectomy; ll1 - Immunization history:: Adult Immunizations up to date. - Social history:: Smoking status: Patient denies any tobacco usage or history of. Screenin:55 [facility] ED Fall Risk Assessment (Adult) History of falling in the last 3 months, ph including since admission Yes- single mechanical fall (1 pt) Confusion or Disorientation No (0 pts) Intoxicated or Sedated No (0 pts) Impaired Gait No (0 pts) Mobility Assist Device Used No (0 pt) Altered Elimination No (0 pt) Score/Fall Risk Level 0 - 2 = Low Risk Oriented to surroundings, Maintained a safe environment, Provided non-skid footwear, Hourly rounding (assess needs \T\ fall precautionary measures) done. Abuse screen: Denies threats or abuse. Denies injuries from another. Nutritional screening: No deficits noted. Tuberculosis screening: No symptoms or risk factors identified. Assessment: 15:54 General: Appears in no apparent distress. Behavior is calm, cooperative, appropriate ph for age. Pain: Complains of pain in right foot. Neuro: Level of Consciousness is awake, alert, obeys commands, Oriented to person, place, time, situation. Cardiovascular: Capillary refill < 3 seconds in bilateral fingers Patient's skin is warm and dry. Respiratory: Airway is patent Respiratory effort is even, unlabored, Respiratory pattern is regular, symmetrical. Derm: Skin is pink, warm \T\ dry. Vital Signs: 15:15 BP 111 / 67; Pulse 65; Resp 18; Temp 98.1; Pulse Ox 99% ; Weight 112.49 kg; Height 5 ll1 ft. 6 in. ; Pain 9/10; 15:15 Body Mass Index 40.03 (112.49 kg, 167.64 cm) ll1 15:15 Pain Scale: Adult ll1 ED Course: 14:58 Patient arrived in ED. mg5 14:59 Krystian So MD is Attending Physician. ec2 15:16 Triage completed. ll1 15:16 Arm band placed on. ll1 15:17 Maribel Horton, RN is Primary Nurse. ph 15:56 Patient has correct armband on for positive identification. Bed in low position. Call ph light in reach. Side rails up X 1. Pulse ox on. NIBP on. 16:19 Foot Right 3 View In Process Unspecified. EDMS 16:20 Tib Fib Right XRAY In Process Unspecified. EDMS 16:52 No provider procedures requiring assistance completed. Patient did not have IV access ph during this emergency room visit. Administered Medications: No medications were administered Medication: 15:56 VIS not applicable for this client. ph Outcome: 16:31 Discharge ordered by . ec2 16:52 Discharged to home ambulatory, ph 16:52 Condition: good 16:52 Discharge instructions given to patient, Instructed on discharge instructions, follow up and referral plans. Demonstrated understanding of instructions, follow-up care, 16:53 Patient left the ED. ph Signatures: Dispatcher [employer] Maribel Bean, Dionne Kyle RN, ph, RN RN ll1 Wilma Reich mg5 Krystian So MD MD ec2
[2023-10-17 19:18] VITALS: BP 111/67; TEMP 98.1; O2SAT 99
== END ==
LOC: ER 14:55
DX: S93.601A Unspecified sprain of right foot, initial encounter (principal)
CPT/HCPCS: 99283

== ENCOUNTER 2025-02-12 15:13 | Inpatient (IN) | payer OTHER ==
[2025-02-12] MEDS ORDERED: ASPIRIN 81 MG CHEWABLE TABLET ONE (16:02)
[2025-02-12] MEDS ORDERED: NA CHLORIDE 0.9% 500 ML ONE (16:02)
--- NOTE | 2025-02-12 16:05 | RAD REPORT ---
EXAM: Chest Single View HISTORY: 49 years Female CHEST PAIN COMPARISON: 02/10/23 FINDINGS: LUNGS/PLEURA: The lungs are clear. No pleural effusions or pneumothorax. No pulmonary edema. CARDIAC/MEDIASTINUM: The cardiac silhouette is within normal limits. UPPER ABDOMEN: No significant abnormality. BONES: No acute abnormality. LINES/TUBES/OTHER: N/A IMPRESSION: No evidence of acute cardiopulmonary disease. No significant change from prior.
[2025-02-12 16:41] LABS: D-Dimer 0.384 FEUug/mL (0-0.500); Protime INR 0.96
[2025-02-12 16:42] LABS: Absolute Eosinophils 0.1 K/uL (0-0.5); Absolute Lymphocytes (CBC) 2.3 K/uL (0.7-4.9); Absolute Monocytes 0.3 K/uL (0.1-1.3); Absolute Neutrophil 2.7 K/uL (1.8-8.0); Basophils % 0.3 % (0-1.3); Eosinophils % 2.5 % (0-4.4); Hematocrit 39.3 % (36.0-45.0); Hemoglobin 13.7 g/dL (12.0-15.0); Lymphocytes % 41.7 % (15.3-44.8); MCH 33.3 pg (27.0-35.0); MCHC 34.8 g/dL (32.0-36.0); MCV 95.6 fL (80-100); MPV 8.5 fL (7.6-11.3); Neutrophils % 49.5 % (41.7-73.7); Nucleated Red Blood Cells % 0.2 % (0-0); Platelets 205 thou/uL (152-406); RBC Red Blood Cell Count 4.12 M/uL (3.86-4.86); Red Cell Distribution Width 12.9 % (12.1-15.2)
[2025-02-12 16:54] LABS: Albumin 3.4 g/dL (3.4-5.0); Albumin/Globulin Ratio 0.9 (1.1-1.8); Anion Gap 6.6 mEq/L (5.0-15.0); Bilirubin Direct 0.2 mg/dL (0-0.2); Bilirubin Indirect, Calculated 0.9 mg/dL (0.2-0.8); Bilirubin Total 1.1 mg/dL (0.2-1.0); Globulin 3.9 g/dL (2.3-3.5); Potassium 3.6 mEq/L (3.5-5.1); Protein, Total 7.3 g/dL (6.4-8.2); Troponin High Sensitivity 4.4 pg/mL (<58.9)
--- NOTE | 2025-02-12 17:13 | ER ---
Nurse's Notes [facility] Name: Theresa Mcgill Age: 49 yrs Sex: Female : 1975 Arrival Date: 02/12/2025 Time: 15:13 Bed 14 Private MD: Diagnosis: Chest pain, unspecified;Palpitations-frequent pvc's;Syncope Near Presentation: 02/12 15:18 Chief complaint: Patient states: fatigue X 3 days, feels a heaviness in her cheat, iw sometimes she has acid reflux but her medicine is not helping, has no energy. Coronavirus screen: At this time, the client does not indicate any symptoms associated with coronavirus-19. Ebola Screen: No symptoms or risks identified at this time. Initial Sepsis Screen: Does the patient meet any 2 criteria? No. Patient's initial sepsis screen is negative. Does the patient have a suspected source of infection? No. Patient's initial sepsis screen is negative. Risk Assessment: Do you want to hurt yourself or someone else? Patient reports no desire to harm self or others. Onset of symptoms was February 09, 2025. 15:18 Method Of Arrival: Ambulatory iw 15:18 Acuity: PAULINE 3 iw Historical: - Allergies: 15:19 No Known Allergies; iw - PMHx: 15:19 Hyperlipidemia; Hypertension; Asthma; acid reflux; iw - PSHx: 15:19 eye surgery; hysterectomy; iw - Immunization history:: Adult Immunizations Flu vaccine is up to date. - Infectious Disease History:: Denies. - Social history:: Smoking status: Patient denies any tobacco usage or history of. Screenin:10 [facility] ED Fall Risk Assessment (Adult) History of falling in the last 3 months, db including since admission No falls in past 3 months (0 pts) Confusion or Disorientation No (0 pts) Intoxicated or Sedated No (0 pts) Impaired Gait No (0 pts) Mobility Assist Device Used No (0 pt) Altered Elimination No (0 pt) Score/Fall Risk Level 0 - 2 = Low Risk Oriented to surroundings, Maintained a safe environment. Abuse screen: Denies threats or abuse. Denies injuries from another. Nutritional screening: No deficits noted. Tuberculosis screening: No symptoms or risk factors identified. Assessment: 16:10 Reassessment: Patient appears in no apparent distress at this time. Patient and/or db family updated on plan of care and expected duration. Pain level reassessed. Patient is alert, oriented x 3, equal unlabored respirations, skin warm/dry/pink. General: Appears in no apparent distress. comfortable, Behavior is calm, cooperative. Pain: Complains of pain in chest Pain does not radiate. Pain began gradually. Neuro: Level of Consciousness is awake, alert, obeys commands, Oriented to person, place, time, situation. Cardiovascular: Reports chest pain. Respiratory: Airway is patent Respiratory effort is even, unlabored, Respiratory pattern is regular, symmetrical. 17:52 Reassessment: Patient appears in no apparent distress at this time. Patient and/or db family updated on plan of care and expected duration. Pain level reassessed. Patient is alert, oriented x 3, equal unlabored respirations, skin warm/dry/pink. SEE MAR FOR MEDICATION ADMINISTRATION FOR HEADACHE. 18:56 Reassessment:. db 18:59 Reassessment: Patient appears in no apparent distress at this time. Patient and/or db family updated on plan of care and expected duration. Pain level reassessed. Patient is alert, oriented x 3, equal unlabored respirations, skin warm/dry/pink. Vital Signs: 15:21 BP 125 / 79; Pulse 79; Resp 19; Pulse Ox 96% on R/A; Weight 108.86 kg; Height 5 ft. 6 iw in. ; Pain 0/10; 17:00 BP 142 / 93; Pulse 71; Resp 18; Pulse Ox 100% ; db 17:30 BP 125 / 78; Pulse 61; Resp 16; Pulse Ox 100% ; db 18:30 BP 115 / 66; Pulse 70; Resp 18; Temp 98; Pulse Ox 97% on R/A; db 15:21 Body Mass Index 38.74 (108.86 kg, 167.64 cm) iw 15:21 Pain Scale: Adult iw ED Course: 15:16 Patient arrived in ED. al6 15:17 Jesse Awad MD is Attending Physician. simin 15:19 Triage completed. iw 15:31 Michaelle Barnes, JOSE is Primary Nurse. db 15:55 XRAY Chest (1 view) In Process Unspecified. EDMS 16:10 Patient maintains SpO2 saturation greater than 95% on room air. db 16:10 Patient has correct armband on for positive identification. Call light in reach. Side db rails up X 1. Client placed on continuous cardiac and pulse oximetry monitoring. NIBP monitoring applied. casting house worker on. Pulse ox on. NIBP on. 16:20 Initial lab(s) drawn, by me, sent to lab. Inserted saline lock: 20 gauge in right db antecubital area, using aseptic technique. Blood collected. Flushed with 10 mL NS. 17:11 Rosales Monzon MD is Hospitalizing Provider. simin 17:49 Arm band placed on Patient placed in an exam room. db Administered Medications: 16:20 Drug: Aspirin PO Chewable Tablet 324 mg PO once; 81 mg tablets x 4 Route: PO; db 16:22 Drug: NS 0.9% IV 500 ml 500 ml IV at 1 bolus once; to be given as a bolus over 30 db minutes Volume: 500 ml; Route: IV; Rate: 1 bolus; Site: right antecubital; 17:20 Follow up: Response: No adverse reaction; IV Status: Completed infusion; IV Intake: db 500ml 17:30 Drug: Magnesium Sulfate IVPB 1 grams IVPB once over 1 hrs Route: IVPB; Infused Over: 1 db hrs; Site: right antecubital; 17:30 Drug: Enoxaparin Sub-Q 100 mg Sub-Q once Route: Sub-Q; Site: right lower abdomen; db 17:30 Drug: Famotidine IVP 20 mg IVP once; dilute with 10 mL 0.9% NaCl; give over 2 minutes db Route: IVP; Site: right antecubital; 17:33 Not Given (Patient Refused): [id number] mg PO once db 17:40 Drug: Ibuprofen PO 600 mg PO once Route: PO; db Medication: 16:10 VIS not applicable for this client. db Intake: 17:20 IV: 500ml; Total: 500ml. db Outcome: 17:13 Decision to Hospitalize by Provider. simin 20:04 Patient left the ED. vc1 Signatures: Dispatcher [employer] EDMS Jesse Awad MD MD cha Williams, Irene, RN RN iw Yudelka Sanchez RN RN vc1 Michaelle Barnes RN RN db Lexy Gill Corrections: (The following items were deleted from the chart) 15:21 15:19 Allergies: Aspirin; iw iw 19:12 18:30 BP 115 / 66; Pulse 70bpm; Resp 18bpm; Pulse Ox 97% RA; db db
--- NOTE | 2025-02-12 17:13 | EDPHYS ---
Physician Documentation [facility] Name: Theresa Mcgill Age: 49 yrs Sex: Female : 1975 Arrival Date: 02/12/2025 Time: 15:13 Bed 14 Private MD: KALLI Physician Jesse Awad HPI: 02/12 17:02 This 49 yrs old Black Female presents to ER via Ambulatory with complaints of Chest simin Pain. 17:02 The patient or guardian reports chest pain that is located primarily in the substernal simin area. Onset: 2 day(s) ago. The pain does not radiate. Associated signs and symptoms: Pertinent positives: lightheadedness, near-syncope. The chest pain is described as a heaviness. Modifying factors: The symptoms are alleviated by remaining still, rest, the symptoms are aggravated by walking. Severity of pain: At its worst the pain was mild in the emergency department the pain has improved. The patient has experienced similar episodes in the past, several times. Historical: - Allergies: 15:19 No Known Allergies; iw - PMHx: 15:19 Hyperlipidemia; Hypertension; Asthma; acid reflux; iw - PSHx: 15:19 eye surgery; hysterectomy; iw - Immunization history:: Adult Immunizations Flu vaccine is up to date. - Infectious Disease History:: Denies. - Social history:: Smoking status: Patient denies any tobacco usage or history of. ROS: 17:05 Constitutional: Negative for fever, chills, and weight loss, Eyes: Negative for injury, simin pain, redness, and discharge, ENT: Negative for injury, pain, and discharge, Neck: Negative for injury, pain, and swelling, Respiratory: Negative for shortness of breath, cough, wheezing, and pleuritic chest pain, Abdomen/GI: Negative for abdominal pain, nausea, vomiting, diarrhea, and constipation, Back: Negative for injury and pain, : Negative for injury, bleeding, discharge, and swelling, MS/Extremity: Negative for injury and deformity, Skin: Negative for injury, rash, and discoloration, Psych: Negative for depression, anxiety, suicide ideation, homicidal ideation, and hallucinations, Allergy/Immunology: Negative for hives, rash, and allergies, Endocrine: Negative for neck swelling, polydipsia, polyuria, polyphagia, and marked weight changes, Hematologic/Lymphatic: Negative for swollen nodes, abnormal bleeding, and unusual bruising, 17:05 Cardiovascular: Positive for chest pain, of the chest, 17:05 Neuro: Positive for dizziness, near syncope, weakness, Exam: 17:05 Constitutional: This is a well developed, well nourished patient who is awake, alert, simin and in no acute distress. Head/Face: Normocephalic, atraumatic. Eyes: Pupils equal round and reactive to light, extra-ocular motions intact. Lids and lashes normal. Conjunctiva and sclera are non-icteric and not injected. Cornea within normal limits. Periorbital areas with no swelling, redness, or edema. ENT: Nares patent. No nasal discharge, no septal abnormalities noted. Tympanic membranes are normal and external auditory canals are clear. Oropharynx with no redness, swelling, or masses, exudates, or evidence of obstruction, uvula midline. Mucous membranes moist. Neck: Trachea midline, no thyromegaly or masses palpated, and no cervical lymphadenopathy. Supple, full range of motion without nuchal rigidity, or vertebral point tenderness. No Meningismus. Chest/axilla: Normal chest wall appearance and motion. Nontender with no deformity. No lesions are appreciated. Cardiovascular: Regular rate and rhythm with a normal S1 and S2. No gallops, murmurs, or rubs. Normal PMI, no JVD. No pulse deficits. Respiratory: Lungs have equal breath sounds bilaterally, clear to auscultation and percussion. No rales, rhonchi or wheezes noted. No increased work of breathing, no retractions or nasal flaring. Abdomen/GI: Soft, non-tender, with normal bowel sounds. No distension or tympany. No guarding or rebound. No evidence of tenderness throughout. Back: No spinal tenderness. No costovertebral tenderness. Full range of motion. Skin: Warm, dry with normal turgor. Normal color with no rashes, no lesions, and no evidence of cellulitis. MS/ Extremity: Pulses equal, no cyanosis. Neurovascular intact. Full, normal range of motion., bilateral aka Neuro: Awake and alert, GCS 15, oriented to person, place, time, and situation. Cranial nerves II-XII grossly intact. Motor strength 5/5 in all extremities. Sensory grossly intact. Cerebellar exam normal. Normal gait. Psych: Awake, alert, with orientation to person, place and time. Behavior, mood, and affect are within normal limits. 17:05 ECG was reviewed by the Attending Physician. 17:05 Musculoskeletal/extremity: DVT Exam: No signs of deep vein thrombosis. no pain, no swelling, no tenderness, negative Homans' sign noted on exam, no appreciated bluish discoloration, no erythema, no increased warmth, Vital Signs: 15:21 BP 125 / 79; Pulse 79; Resp 19; Pulse Ox 96% on R/A; Weight 108.86 kg; Height 5 ft. 6 iw in. ; Pain 0/10; 17:00 BP 142 / 93; Pulse 71; Resp 18; Pulse Ox 100% ; db 17:30 BP 125 / 78; Pulse 61; Resp 16; Pulse Ox 100% ; db 18:30 BP 115 / 66; Pulse 70; Resp 18; Temp 98; Pulse Ox 97% on R/A; db 15:21 Body Mass Index 38.74 (108.86 kg, 167.64 cm) iw 15:21 Pain Scale: Adult iw MDM: 15:17 Medical Screening Exam initiated simin 17:06 Differential diagnosis: abnormal EKG, acute myocardial infarction, acute pericarditis, simin anxiety, coronary artery disease esophagitis, hiatal hernia, pancreatitis, peptic ulcer disease, pericarditis, pneumonia, pulmonary embolus, stable angina, thoracic aortic disection, unstable angina. HEART Score: History: Slightly Suspicious (0), ECG: Non specific repolarization disturbance / LBTB / PM (1), Age: > 45 and < 65 years (1), Risk Factors: > or = 3 Risk factors for atherosclerotic disease (2), [Hypercholesterolemia] [Hypertension] [+ Family HX] [Obesity] Troponin: < or = 1 x Normal Limit (0). The patient was given aspirin in the Emergency Department. MARISSA Risk Score: 1 - Three or more CAD risk factors, 1 - ASA use in past 7 days. Data reviewed: vital signs, nurses notes, lab test result(s), EKG, radiologic studies, plain films. Consideration of Admission/Observation Patient was admitted/placed on observation. Escalation of care including admission/observation considered. I considered the following discharge prescriptions or medication management in the emergency department Medications were administered in the Emergency Department. See MAR. Independent interpretation of the following test(s) in the Emergency Department EKG: See my EKG interpretation above. Test considered but Not performed: CT: no ct chest. Historians other than the Patient: pt well informed. Care significantly affected by the following chronic conditions: Hypertension, Obesity, hyperlipidemia. Counseling: I had a detailed discussion with the patient and/or guardian regarding the historical points, exam findings, and any diagnostic results supporting the discharge/admit diagnosis, lab results, radiology results, the need for further work-up and treatment in the hospital. 02/12 15:18 Order name: Basic Metabolic Panel; Complete Time: 16:57 simin 02/12 15:18 Order name: CBC with Diff; Complete Time: 16:57 02/12 15:18 Order name: D-Dimer; Complete Time: 16:57 02/12 15:18 Order name: LFT's; Complete Time: 16:57 02/12 15:18 Order name: Magnesium; Complete Time: 16:57 02/12 15:18 Order name: NT PRO-BNP; Complete Time: 16:57 02/12 15:18 Order name: PT-INR; Complete Time: 16:57 02/12 15:18 Order name: Troponin HS; Complete Time: 16:57 02/12 15:18 Order name: Lipase; Complete Time: 16:57 02/12 15:18 Order name: Urinalysis w/ reflexes 02/12 17:05 Order name: TSH [facility] 02/12 18:36 Order name: Basic Metabolic Panel [facility] 02/12 18:36 Order name: CBC with Automated Diff [facility] 02/12 18:36 Order name: Troponin High Sensitivity [facility] 02/12 18:36 Order name: Troponin High Sensitivity [facility] 02/12 18:36 Order name: Troponin High Sensitivity [facility] 02/12 18:36 Order name: Troponin High Sensitivity [facility] 02/12 18:36 Order name: Troponin High Sensitivity [facility] 02/12 15:18 Order name: XRAY Chest (1 view); Complete Time: 16:57 02/12 18:36 Order name: Echo with Doppler [facility] 02/12 15:18 Order name: EKG; Complete Time: 15:19 02/12 15:18 Order name: Cardiac monitoring; Complete Time: 16:24 02/12 15:18 Order name: EKG - Nurse/Tech; Complete Time: 15:33 02/12 15:18 Order name: IV Saline Lock; Complete Time: 16:24 [facility] 02/12 15:18 Order name: Labs collected and sent; Complete Time: 16: [facility] 02/12 15:18 Order name: O2 Per Protocol; Complete Time: 16: [facility] 02/12 15:18 Order name: O2 Sat Monitoring; Complete Time: 16:24 [facility] EC:05 Rate is 75 beats/min. Rhythm is regular. QRS [place] is Normal. NV interval is normal. QRS simin interval is normal. QT interval is normal. No Q waves. T waves are Normal. No ST changes noted. Clinical impression: NSR w/ Non-specific ST/T Changes and No evidence of ischemia. Interpreted by me. Reviewed by me. Administered Medications: 16:20 Drug: Aspirin PO Chewable Tablet 324 mg PO once; 81 mg tablets x 4 Route: PO; db 16:22 Drug: NS 0.9% IV 500 ml 500 ml IV at 1 bolus once; to be given as a bolus over 30 db minutes Volume: 500 ml; Route: IV; Rate: 1 bolus; Site: right antecubital; 17:20 Follow up: Response: No adverse reaction; IV Status: Completed infusion; IV Intake: db 500ml 17:30 Drug: Magnesium Sulfate IVPB 1 grams IVPB once over 1 hrs Route: IVPB; Infused Over: 1 db hrs; Site: right antecubital; 17:30 Drug: Enoxaparin Sub-Q 100 mg Sub-Q once Route: Sub-Q; Site: right lower abdomen; db 17:30 Drug: Famotidine IVP 20 mg IVP once; dilute with 10 mL 0.9% NaCl; give over 2 minutes db Route: IVP; Site: right antecubital; 17:33 Not Given (Patient Refused): [id number] mg PO once db 17:40 Drug: Ibuprofen PO 600 mg PO once Route: PO; db Disposition Summary: 02/12/25 17:13 Hospitalization Ordered Notes: Hospitalization Status: Observation simin Provider: Rosales Monzon cha Location: Telemetry/MedSurg (observation) simin Condition: Fair simin Problem: new simin Symptoms: have improved simin Bed/Room Type: Standard simin Room Assignment: 231(02/12/25 18:42) bd Diagnosis - Chest pain, unspecified simin - Palpitations - frequent pvc's simin - Syncope Near simin Forms: - Medication Reconciliation Form simin - SBAR form simin - Leadership Thank You Letter simin Signatures: Dispatcher [employer] EDMS Tamar Gorman Corey, MD MD cha Williams, Irene, RN RN iw Michaelle Barnes RN RN db Corrections: (The following items were deleted from the chart) 15:19 15:19 BASIC METABOLIC PANEL+C.LAB.BRZ ordered. EDMS EDMS 15:19 15:19 CBC+H.LAB.BRZ ordered. EDMS EDMS 15:19 15:19 D-DIMER+COAG.LAB.BRZ ordered. EDMS EDMS 15:19 15:19 HEPATIC FUNCTION+C.LAB.BRZ ordered. EDMS EDMS 15:19 15:19 MAGNESIUM+C.LAB.BRZ ordered. EDMS EDMS 15:19 15:19 PROBNP+C.LAB.BRZ ordered. EDMS EDMS 15:19 15:19 PROTIME (+INR)+COAG.LAB.BRZ ordered. EDMS EDMS 15:19 15:19 Troponin High Sensitivity+C.LAB.BRZ ordered. EDMS EDMS 15:19 15:19 LIPASE+C.LAB.BRZ ordered. EDMS EDMS 15:19 15:19 Urinalysis+U.LAB.BRZ ordered. EDMS EDMS 15:21 15:19 Allergies: Aspirin; iw iw 18:42 17:13 simin bd
[2025-02-12] MEDS ORDERED: METOPROLOL TAR 25 MG TAB ONE (17:22)
[2025-02-12] MEDS ORDERED: ENOXAPARIN 100 MG/ML SYR SQ ONE (17:23)
[2025-02-12] MEDS ORDERED: MAGNESIUM SULFATE 1 gm IVPB 1 GM/100 ML BAG IV ONE (17:23)
[2025-02-12] MEDS ORDERED: FAMOTIDINE 20 MG/2 ML VIAL IV ONE (17:23)
[2025-02-12] MEDS ORDERED: IBUPROFEN 200 MG TAB PO ONE (17:36)
[2025-02-12] MEDS ORDERED: IBUPROFEN 400 MG TAB ONE (17:36)
[2025-02-12 17:47] LABS: Specific Gravity 1.019 (1.005-1.030); Urine Bilirubin NEGATIVE (Negative); Urine Blood Negative (Negative); Urine Clarity Clear (Clear); Urine Color Light-Yellow (Yellow); Urine Glucose NEGATIVE (Negative); Urine Ketones NEGATIVE (Negative); Urine Microscopic Reflex YN NO UMIC; Urine Nitrite NEGATIVE (Negative); Urine Protein NEGATIVE (Negative); Urine Urobilinogen Normal (Normal)
[2025-02-12] MEDS ORDERED: ZOLPIDEM TARTRATE 5 MG TABLET PO PRN (18:31)
[2025-02-12] MEDS ORDERED: MORPHINE 4 MG/ML SYR IV PRN (18:31)
[2025-02-12] MEDS ORDERED: NITROGLYCERIN 0.4 MG/TAB SL PRN (18:31)
--- NOTE | 2025-02-12 18:35 | P.HP ---
Patient History Date of Service: 02/13/25 Reason for admission: Chest pain History of Present Illness: 49-year-old with a past medical history of hypertension and hyperlipidemia presenting with chest pain that began a few days ago. She has a history of severe acid reflux disease. She states she has had chest pain in the past however this was more localized to the left side of her chest. In addition she has been experiencing significant weakness and shortness of breath with just walking. She is an active person and has never had this level of weakness with exertion. She has had several family members who have had heart issues in the past. She denies any illicit drug use. 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 She denies fevers, chills. She does endorse a cough that began yesterday. She has had a previous stress test a year ago with Dr. Sam, cardiology. Allergies No Known Allergies Allergy (Unverified 02/12/25 18:47) Home Medications: Albuterol Inhaler [Ventolin Inhaler*] 2 puff ELEUTERIO DIRECTED 02/12/25 Carvedilol [Coreg] 12.5 mg PO DAILY 02/12/25 Ezetimibe/Rosuvastatin Calcium [Rosuvastatin-Ezetimibe 40-10Mg] 40 mg PO BID 02/12/25 Famotidine 40 mg PO PRN 02/12/25 Magnesium Oxide [Mag 0X*] 400 mg PO BID 02/12/25 Meloxicam 15 mg PO PRN 02/12/25 Pantoprazole [Protonix Tab*] 40 mg PO DAILY 02/12/25 Review of Systems General: As per HPI Eyes: Unremarkable ENT: Unremarkable Respiratory: SOB with Excertion Cardiovascular: Chest Pain Gastrointestinal: Unremarkable Genitourinary: Unremarkable Musculoskeletal: Unremarkable Integumentary: Unremarkable Neurological: Unremarkable Lymphatics: Unremarkable Physical Examination - Physical Exam General: Alert, In no apparent distress HEENT: Atraumatic, Normocephalic Neck: Supple Respiratory: Clear to auscultation bilaterally Cardiovascular: No edema, Normal pulses Capillary refill: <2 Seconds Gastrointestinal: Normal bowel sounds, Soft and benign Musculoskeletal: No clubbing, No swelling Integumentary: No rashes, No breakdown Neurological: Normal gait, Normal speech Lymphatics: No axilla or inguinal lymphadenopathy - Studies Laboratory Data (last 24 hrs) 02/12/25 02/12/25 02/12/25 16:20 16:20 16:20 WBC 5.50 Hgb 13.7 Hct 39.3 Plt Count 205 PT 11.0 INR 0.96 Sodium 138 Potassium 3.6 BUN 14 Creatinine 1.00 Glucose 89 Magnesium 2.0 Total Bilirubin 1.1 H AST 25 ALT 41 Alkaline Phosphatase 82 Lipase 50 Assessment and Plan - Plan Chest pain GERD Hyperlipidemia Hypertension Admit to floor Trend troponin Continue PPI Obtain echocardiogram Continue Coreg Continue ezetimibe/rosuvastatin - Advance Directives Does patient have a Living Will: No Does patient have a Durable POA for Healthcare: No
[2025-02-12 20:28] VITALS: BMI 38.7
[2025-02-12 20:32] VITALS: O2SAT 97
[2025-02-12] MEDS: ACETAMINOPHEN 500 MG TAB PO PRN (21:23)
[2025-02-13 04:21] LABS: Absolute Eosinophils 0.1 K/uL (0-0.5); Absolute Lymphocytes (CBC) 2.2 K/uL (0.7-4.9); Absolute Monocytes 0.4 K/uL (0.1-1.3); Basophils % 0.3 % (0-1.3); Eosinophils % 2.5 % (0-4.4); Hematocrit 36.8 % (36.0-45.0); Hemoglobin 12.9 g/dL (12.0-15.0); Lymphocytes % 46.6 % (15.3-44.8); MCH 33.3 pg (27.0-35.0); MPV 8.5 fL (7.6-11.3); Monocytes % 7.8 % (3.3-12.3); Neutrophils % 42.8 % (41.7-73.7); Nucleated Red Blood Cells % 0.2 % (0-0); Platelets 183 thou/uL (152-406); RBC Red Blood Cell Count 3.88 M/uL (3.86-4.86); Red Cell Distribution Width 13.1 % (12.1-15.2)
[2025-02-13 04:28] LABS: Anion Gap 6.4 mEq/L (5.0-15.0); Potassium 3.4 mEq/L (3.5-5.1)
[2025-02-13] MEDS: PANTOPRAZOLE 40MG TABLET PO SCH (06:33)
[2025-02-13] MEDS: ASPIRIN EC 81 MG TAB PO SCH (08:25)
[2025-02-13] MEDS: ENOXAPARIN 40 MG/0.4 ML SQ SCH (08:25)
[2025-02-13] MEDS: EZETIMIBE PO SCH (09:00)
[2025-02-13] MEDS: [UNRECOGNIZED DRUG - OTHER] PO SCH (09:00)
[2025-02-13] MEDS: ROSUVASTATIN CALCIUM PO SCH (09:00)
[2025-02-13] MEDS: carvediloL 12.5 MG TAB PO ONE (11:45)
--- NOTE | 2025-02-13 12:11 | EKG ---
Test Date: 2025-02-12 Test Time: 15:26:58 Studio Producer: SHARAN MEASUREMENT RESULTS: Intervals: Rate: 75 WY: 168 QRSD: 82 QT: 406 QTc: 453 Nelson: P: 62 WY: 168 QRS: -4 T: 41 INTERPRETIVE STATEMENTS: Sinus rhythm with occasional premature ventricular complexes Possible Left atrial enlargement Possible Anterior infarct, age undetermined Abnormal ECG Compared to ECG 05/07/2022 14:31:34 No significant changes Electronically Signed On 02-13-25 12:08:57 CDT by Carlos Mckenzie
[2025-02-13] MEDS ORDERED: REGADENOSON 0.4 MG/5 ML SYR IV ONE (13:12)
--- NOTE | 2025-02-13 14:31 | RAD REPORT ---
EXAM :Rest Stress Cardiac Imaging CLINICAL HISTORY: Chest pain TECHNIQUE: Rest images: 10.6 mCi technetium 99m sestamibi administered intravenously. Stress images: 30.2 mCi of technetium 99m sestamibi administered intravenously. Cardiac SPECT images obtained COMPARISON: None. FINDINGS: Small area of diminished radiotracer uptake involves the apical left ventricular myocardium on rest a nd stress sequences Remainder of the exam unremarkable. Left ventricular ejection fraction equals 60% IMPRESSION: Small apparent fixed perfusion defect involving the apical left ventricular myocardium may represent an infarct or physiologic thinning. No evidence of stress-induced ischemia
--- NOTE | 2025-02-13 15:26 | P.PN ---
Subjective Date of Service: 02/13/25 Chief Complaint: Chest pain Subjective: chest pain and shortness of breath ongoing but better compared with admission. No nausea or vomiting. No abdominal pain. No obvious bleeding. Looks comfortable in the bed. Objective: General appearance: Alert and comfortable CVS: Normal S1 and S2 Lungs: Clear to auscultation bilaterally Abdomen: Soft, bowel sounds present, no tenderness Extremities: No lower extremity edema Physical Examination - Vital Signs Temperature: 97.6 F Blood Pressure: 121/53 Pulse: 69 Respirations: 16 Pulse Ox (%): 98 - Studies Laboratory Data (last 24 hrs) 02/12/25 02/12/25 02/12/25 16:20 16:20 16:20 WBC 5.50 Hgb 13.7 Hct 39.3 Plt Count 205 PT 11.0 INR 0.96 Sodium 138 Potassium 3.6 BUN 14 Creatinine 1.00 Glucose 89 Magnesium 2.0 Total Bilirubin 1.1 H AST 25 ALT 41 Alkaline Phosphatase 82 Lipase 50 Assessment And Plan - Plan 1. Chest pain and SOB: Troponin negative, chest x-ray negative, stress test no ischemia but there is a fixed defect which could be diaphragmatic or breast attenuation, I requested Dr. Mckenzie to review the results. -Due to persistent chest pain and shortness of breath, will get a CT PE protocol. 2. GERD: PPI 3. Hyperlipidemia, Hypertension: cont home meds Plan discussed with patient, answered all questions.
[2025-02-13] MEDS: POTASSIUM CL SA 10 MEQ TAB PO ONE (16:03)
--- NOTE | 2025-02-13 18:18 | RAD REPORT ---
EXAMINATION: CTA CHEST PE CLINICAL INDICATION: Female, 49 years old. chest pain, rule out PE TECHNIQUE: This examination was performed according to an angiographic protocol with 3D post-processi ng. This involves 3D reconstructions, MIPs, volume rendered images and/or shaded surface rendering. One or more of the following dose reduction techniques were used: Automated exposure control, adjustm ent of the mA and/or kV according to patient size, and/or iterative reconstruction. Unless otherwise specified, incidental findings do not require dedicated imaging follow-up. [id number]. COMPARISON: 05/07/2022 FINDINGS: LOWER NECK: Visualized thyroid gland and soft tissues are normal. MEDIASTINUM AND LYMPH NODES: No mediastinal mass or fluid collection. Normal size mediastinal, hilar, and axillary lymph nodes. THORACIC AORTA: No thoracic aortic aneurysm. PULMONARY ARTERIES: Pulmonary artery caliber is upper limits of normal. No pulmonary emboli identifie d. HEART: Dilated right atrium and ventricle. No coronary calcifications.No significant pericardial effu smita. LUNGS AND AIRWAYS: Airways are clear. No evidence of airspace or interstitial process.No suspicious a nd/or stable pulmonary nodules. PLEURA: No pleural effusions. No pneumothorax. OSSEOUS STRUCTURES AND CHEST WALL: Multilevel degenerative changes. No acute fracture. UPPER ABDOMEN: No acute abnormalities. IMPRESSION: Negative for pulmonary embolism or other acute findings in the chest. Mildly dilated main pulmonary a rtery and both right atrium and ventricle. This could reflect pulmonary artery hypertension. Suggest correlation with echocardiography.
[2025-02-13] MEDS: ROSUVASTATIN 10 MG TAB PO SCH (20:02)
[2025-02-13] MEDS: EZETIMIBE 10 MG TAB PO SCH (20:02)
[2025-02-13] MEDS: ALBUTEROL 2.5 MG/3 ML NEB SOL NEB PRN (21:45)
[2025-02-13] MEDS: IPRATROPIUM BROM 0.5MG/2.5ML NEB PRN (21:45)
[2025-02-14 06:05] LABS: Anion Gap 6.2 mEq/L (5.0-15.0); Potassium 4.2 mEq/L (3.5-5.1)
[2025-02-14] MEDS: carvediloL 12.5 MG TAB PO SCH (08:48)
--- NOTE | 2025-02-14 11:47 | P.DS ---
Admission Date: 02/13/25 Discharge Date: 02/14/25 Disposition: DC HOME/HOME HEALTH CARE Discharge Condition: GOOD Reason for Admission: Chest pain Hospital Course: Discharge diagnosis 1. Chest pain and SOB: Troponin negative, chest x-ray negative, stress test no ischemia but there is a fixed defect, Dr. Mckenzie reviewed the results, this abnormality is from gut attenuation artifact. - CT PE protocol. negative for PE 2. GERD: PPI 3. Hyperlipidemia, Hypertension: cont home meds 4. H/o asthma: cont inhalers 5. Morbid obesity with a BMI of 38.7: Consider weight loss, follow-up with PCP. 6. Possible sleep apnea: Discussed with the patient to get sleep study as outpatient. Hospital course: 49-year-old patient admitted with chest pain and shortness of breath, troponins negative, chest x-ray was negative, stress test was ordered, which did not show any ischemia except fixed defect, I discussed with cardiology, fixed defect is from gut attenuation artifact, she was still having symptoms yesterday, so the CT PE protocol was ordered which was negative for PE but there is some concern for mild dilatation of the pulmonary artery, echo was ordered, prelim report shows right atrium normal, right ventricle normal, mild tricuspid regurgitation, left atrium and left ventricle normal, mitral and aortic valves are normal as well, left ventricular wall motion is normal, left ventricular ejection fraction is 55 to 60%, normal diastolic function, this is a preliminary report. When I see the patient today she is doing well without acute problems, she feels ready to go home, otherwise no other acute issues going on so I am planning to discharge her to go home, I strongly advised her to get the sleep test as an outpatient, if the symptoms recur, she needs to be seen by pulmonary or cardiology for further workup. Subjective: chest pain and shortness of breath resolved. No nausea or vomiting. No abdominal pain. No obvious bleeding. Looks comfortable in the bed. Feels ready to go home. Objective: General appearance: Alert and comfortable CVS: Normal S1 and S2 Lungs: Clear to auscultation bilaterally Abdomen: Soft, bowel sounds present, no tenderness Extremities: No lower extremity edema Vital Signs/Physical Exam: Temp Pulse Resp BP Pulse Ox 97.4 F 60 16 104/66 97 02/14/25 08:00 02/14/25 08:48 02/14/25 08:00 02/14/25 08:48 02/14/25 08:00 Laboratory Data at Discharge: WBC 4.60 thou/uL (4.3-10.9) 02/13/25 03:35 Hgb 12.9 g/dL (12.0-15.0) 02/13/25 03:35 Hct 36.8 % (36.0-45.0) 02/13/25 03:35 Plt Count 183 thou/uL (152-406) 02/13/25 03:35 PT 11.0 SECONDS (10-13.0) 02/12/25 16:20 INR 0.96 02/12/25 16:20 Sodium 138 mEq/L (136-145) 02/14/25 05:40 Potassium 4.2 mEq/L (3.5-5.1) D 02/14/25 05:40 BUN 10 mg/dL (7-18) 02/14/25 05:40 Creatinine 0.81 mg/dL (0.55-1.02) 02/14/25 05:40 Glucose 95 mg/dL (74-106) 02/14/25 05:40 Magnesium 2.0 mg/dL (1.6-2.4) 02/12/25 16:20 Total Bilirubin 1.1 mg/dL (0.2-1.0) H 02/12/25 16:20 AST 25 U/L (15-37) 02/12/25 16:20 ALT 41 U/L (13-56) 02/12/25 16:20 Alkaline Phosphatase 82 U/L (45-117) 02/12/25 16:20 Lipase 50 U/L (13-75) 02/12/25 16:20 Imagings Data: Report Status: Signed EXAMINATION: CTA CHEST PE CLINICAL INDICATION: Female, 49 years old. chest pain, rule out PE TECHNIQUE: This examination was performed according to an angiographic protocol with 3D postprocessing. This involves 3D reconstructions, MIPs, volume rendered images and/or shaded surface rendering. One or more of the following dose reduction techniques were used: Automated exposure control, adjustment of the mA and/or kV according to patient size, and/or iterative reconstruction. Unless otherwise specified, incidental findings do not require dedicated imaging follow-up. [id number]. COMPARISON: 05/07/2022 FINDINGS: LOWER NECK: Visualized thyroid gland and soft tissues are normal. MEDIASTINUM AND LYMPH NODES: No mediastinal mass or fluid collection. Normal size mediastinal, hilar, and axillary lymph nodes. THORACIC AORTA: No thoracic aortic aneurysm. PULMONARY ARTERIES: Pulmonary artery caliber is upper limits of normal. No pulmonary emboli identified. HEART: Dilated right atrium and ventricle. No coronary calcifications.No significant pericardial effusion. LUNGS AND AIRWAYS: Airways are clear. No evidence of airspace or interstitial process.No suspicious and/or stable pulmonary nodules. PLEURA: No pleural effusions. No pneumothorax. OSSEOUS STRUCTURES AND CHEST WALL: Multilevel degenerative changes. No acute fracture. UPPER ABDOMEN: No acute abnormalities. IMPRESSION: Negative for pulmonary embolism or other acute findings in the chest. Mildly dilated main pulmonary artery and both right atrium and ventricle. This could reflect pulmonary artery hypertension. Suggest correlation with echocardiography. Dictated By: Satya Jacob MD 02/13/25 181 Signed By: Satya Jacob MD 02/13/25 181 Stress test: CLINICAL HISTORY: Chest pain TECHNIQUE: Rest images: 10.6 mCi technetium 99m sestamibi administered intravenously. Stress images: 30.2 mCi of technetium 99m sestamibi administered intravenously. Cardiac SPECT images obtained COMPARISON: None. FINDINGS: Small area of diminished radiotracer uptake involves the apical left ventricular myocardium on rest and stress sequences Remainder of the exam unremarkable. Left ventricular ejection fraction equals 60% IMPRESSION: Small apparent fixed perfusion defect involving the apical left ventricular myocardium may represent an infarct or physiologic thinning. No evidence of stress-induced ischemia Dictated By: Jayson Maurice MD 02/13/25 1426 Signed By: Jayson Maurice MD 02/13/25 1428 Home Medications: Albuterol Inhaler [Ventolin Inhaler*] 2 puff ELEUTERIO DIRECTED 02/12/25 Carvedilol [Coreg] 12.5 mg PO DAILY 02/12/25 Ezetimibe/Rosuvastatin Calcium [Rosuvastatin-Ezetimibe 40-10Mg] 40 mg PO BID 02/12/25 Famotidine 40 mg PO PRN 02/12/25 Magnesium Oxide [Mag 0X*] 400 mg PO BID 02/12/25 Meloxicam 15 mg PO PRN 02/12/25 Pantoprazole [Protonix Tab*] 40 mg PO DAILY 02/12/25 Physician Discharge Instructions: [facility] Continuing [employer]: DANYA Chase. [phone]. Expect a call within 1-2 business days from discharge. Call with questions or concerns. Alternate: DANYA Clifton [phone]. Diet: AHA Activity: Ad christine Followup: Patricia Henderson MD [Primary Care Provider] - 1 Week (f/u with PCP in 5-7 days with CBC and CMP. consider sleep test, f/u with pulmonary or cardiology if symptoms recur) Time spent managing pt's care (in minutes): 33
--- NOTE | 2025-02-14 12:35 | CON ---
Date of Consultation: 02/14/2025 Reason For Consultation: Chest pain. History Of Present Illness: This 49-year-old female with history of dyslipidemia, hypertension, pres ented with chest pain. She describes it as pressure-like with activities. It radiates to the should er and left upper extremities, very frequent, so she presented to the emergency room. Stress test wa s normal. EKG, no acute abnormalities. Cardiac enzymes are negative. An echo was normal. Evaluate d by bedside. She has had no further chest pain and she is breathing well without significant sympto ms. Past Medical History: Dyslipidemia and hypertension. Medications: Refer reconciliation sheet for detailed list. Allergies: NO KNOWN DRUG ALLERGIES. Family History: No premature coronary artery disease or cancer. Social History: Does not smoke or drink. Does not use any drugs. Review of Systems: All systems reviewed are negative except as mentioned in HPI. Physical Examination: Vital Signs: Reviewed. Head and Neck: Pupils are equal, reactive to light. Intact eye movements. No JVD, no cervical lymp hadenopathy. Neck is supple. Thyroid is not enlarged. Lungs: Clear to auscultation bilaterally. No rhonchi, wheezing, or crackles. No accessory muscle u se. Heart: Regular rate and rhythm. No extra sounds. Abdomen: Soft, nontender. Bowel sounds positive. No organomegaly. No masses or hernia. No rigidi ty or rebound. Extremities: No edema, clubbing, or cyanosis. Intact pulses. Skin: No rash. No nodules. Neurologic: Alert, awake, and oriented x3. No acute focal deficits appreciated. Investigations: Troponins x4 are negative. A stress test was normal and the echo is normal. Assessment/recommendation: 1. Chest pain, typical symptoms. However, the stress test is normal. Echo is normal. Even diastoli c function is normal and she is feeling much better. The patient can be released from my standpoint and to follow up as an outpatient. If the chest pain comes back especially if it is exertional, then we will do a heart catheterization to rule out multivessel disease. 2. Dyslipidemia. Continue Crestor and Zetia and follow up on an outpatient basis. 3. Hypertension. Blood pressure is very well controlled. Continue carvedilol and to be discharged a lso on baby aspirin. Follow up in a week after discharge and Cardiology will sign off. Case was dis cussed in details with the primary hospitalist. /MATI Voice ID: [id number] Report ID: [id number]
[2025-02-14 12:37] VITALS: BP 103/69; TEMP 97.6
--- NOTE | 2025-02-14 13:37 | ECHO ---
HEIGHT: 5 ft 6 in WEIGHT: 240 lb 0 oz DATE OF STUDY: 02/13/[address]: Rosales Monzon 2-DIMENSIONAL: YES M.MODE: YES DOPPLER: YES COLOR FLOW: YES TDS: PORTABLE: YES DEFINITY: BUBBLE STUDY: DIAGNOSIS: CHEST PAIN CARDIAC HISTORY: CATHERIZATION: NO SURGERY: NO PROSTHETIC VALVE: NO PACEMAKER: NO MEASUREMENTS (cm) DIASTOLIC (NORMALS) SYSTOLIC (NORMALS) IVSd 1.2 (0.6-1.2) LA Diam 2.4 (1.9-4.0) LVEF 55-60% LVIDd 3.5 (3.5-5.7) LVIDs 2.3 (2.0-3.5) %FS 36% LVPWd 1.1 (0.6-1.2) Ao Diam 2.6 (2.0-3.7) 2 DIMENSIONAL ASSESSMENT: RIGHT ATRIUM: NORMAL LEFT ATRIUM: NORMAL RIGHT VENTRICLE: NORMAL LEFT VENTRICLE: NORMAL TRICUSPID VALVE: MILD TRICUSPID REGURGITATION MITRAL VALVE: NORMAL PULMONIC VALVE: MILD PULMONIC INSUFFICIENCY AORTIC VALVE: NORMAL PERICARDIAL EFFUSION: NONE AORTIC ROOT: NORMAL LEFT VENTRICULAR WALL MOTION: NORMAL DOPPLER/COLOR FLOW: SEE BELOW COMMENTS: 1. NORMAL LEFT VENTRICULAR EJECTION FRACTION 55-60% 2. NORMAL WALL MOTION 3. NORMAL DIASTOLIC FUNCTION 4. MILD TRICUSPID REGURGITATION TECHNOLOGIST: TIARA RIOS
--- NOTE | 2025-02-14 13:51 | TREADPHA ---
DX: CHEST PAIN Date of Study: 02/13/2025 Ht: 5' 6 " Wt: 240 lb 0 oz Consulting Physician: CHAZ MEDICATIONS: TYLENOL, ASPIRIN, COREG, LOVENOX, MORPHINE, NITROSTAT, PROTONIX, AMBIEN HISTORY: 49-YEAR-OLD FEMALE WITH COMPLAINTS OF CHEST PAIN. HISTORY OF HYPERTENSION, HYSTERECTOMY, EYE SURGERY. NO KNOWN DRUG ALLERGY PHYSICIAL EXAMINATION: RESTING B.P.: 106/76 RESTING H.R.: 58 RESTING EKG: SINUS RHYTHM WITH FREQUENT PREMATURE VENTRICULAR COMPLEXES. PROTOCOL: PHARMACOLOGIC EXERCISE TIME: 3:30 B.P. AT PEAK STRESS: 114/72 IMPRESSION: LEXISCAN INJECTED. CARDIOLITE INJECTED - SEE NUCLEAR MEDICINE REPORT. PATIENT STATES SOME SHORTNESS OF BREATH AT BEGINNING THAT IMPORVED THROUGHOUT PROCEDURE. PATIENT DENIES CHEST PAINS. NO SUPRAVENTRICULAR TACHYCARDIA, VENTRICULAR TACHYCARDIA, PREMATURE ATRIAL COMPLEXES NOTED. PREMATURE VENTRICULAR COMPLEXES NOTED THROUGHOUT PRECODURE. NO ELECTROCARDIOGRAM CHANGES OF ISCHEMIA WITH LEXISCAN.
== END 2025-02-14 12:39 | disposition home health service (06) | DRG 313 ==
LOC: ER 15:13 → ERHOLD 18:31 → 2ND 19:17 → OBSVTOIN 02-13 18:07
PROVIDERS: ADMIT Family Medicine; ATTEND Hospitalist
DX: R07.9 Chest pain, unspecified (principal); E78.5 Hyperlipidemia, unspecified; I10 Essential (primary) hypertension; K21.9 Gastro-esophageal reflux disease without esophagitis; E66.01 Morbid (severe) obesity due to excess calories; I49.3 Ventricular premature depolarization; J45.909 Unspecified asthma, uncomplicated; G47.30 Sleep apnea, unspecified; Z68.38 Body mass index [BMI] 38.0-38.9, adult; Z79.02 Long term (current) use of antithrombotics/antiplatelets; Z79.899 Other long term (current) drug therapy; Z90.710 Acquired absence of both cervix and uterus
CPT/HCPCS: 36415; 71045; 71275; 78452; 80048; 80076; 81003; 83690; 83735; 83880; 84443; 84484; 85025; 85379; 85610; 93005; 93017; 93306; 94640; 96361; 96372; 96374; 96375; 99285; A9500; G0378; J1650; J2785; J3475; J7040; J7613; J7644; Q9967